=== PATIENT | male | born 1945 | race Caucasian/White ===

== ENCOUNTER 2017-12-20 16:40 | Inpatient (IN) | payer OTHER ==
[~2017-12-20] VITALS: Ht 170.2 cm; Wt 73.9 kg
--- NOTE | 2017-12-20 17:43 | ED GI/GU/ABDOMINAL COMPLAINT ---
History of Present Illness General Chief Complaint: Abdominal Pain/Flank Pain Stated Complaint: ABD PAIN,VOMITING Source: patient, family, old records Exam Limitations: no limitations Vital Signs & Intake/Output Vital Signs & Intake/Output Vital Signs Date Time Temp Pulse Resp B/P B/P Pulse O2 O2 Flow FiO2 Mean Ox Delivery Rate 12/22 1328 98.1 101 20 165/100 95 Room Air 12/22 0848 178/100 12/22 0735 97.5 97 18 162/100 94 Room Air 12/21 2258 97.7 89 20 130/88 95 Room Air ED Intake and Output 12/22 0000 12/21 1200 Intake Total 1920 200 Output Total 300 Balance 1620 200 Intake, IV 1800 200 Intake, Oral 120 Number 0 Bowel Movements Output, Urine 300 Patient 164 lb Weight Weight Reported by Patient Measurement Method Allergies Coded Allergies: No Known Allergies (12/20/17) Reconcile Medications Esomeprazole Magnesium (Nexium) 20 MG CAPSULE.DR 1 CAP PO DAILY GI (Reported) Famotidine (Pepcid AC) (Unknown Strength) TABLET (Unknown Dose) PO DAILY SUPPLEMENT (Reported) Guaifenesin (Mucinex) 1,200 MG TAB.ER.12H 1 TAB PO BID MUCUS (Reported) Ibuprofen 200 MG CAPSULE 2 CAP PO PRN PAIN/INFLAMMATION (Reported) Loratadine (Claritin) 10 MG TABLET 1 TAB PO DAILY ALLERGIES (Reported) Olmesartan Medoxomil (Benicar) 40 MG TABLET 1 TAB PO DAILY BP (Reported) Triage Note: PT TO ED FOR C/C OF INTERMITTENT ABD PAIN X MONTHS. "IT HAPPENS ONCE A MONTH AND LAST FOR THREE DAYS." DENIES WORSENING PAIN THIS EPISODE, "I'M JUST FED UP AND WANT IT CHECKED OUT." +VOMITING X 1 TIME CLEAR LIQUID. CHILLS. DENIES DIARRHEA. Triage Nurses Notes Reviewed? yes Onset: Abrupt Duration: day(s): (1), better, constant Timing: recent history Quality/Severity: aching, burning Severity Numbers: 5 Location: epigastric Radiation: no radiation Activities at Onset: none No Modifying Factors: none Associated Symptoms: denies HPI: 72-year-old male with history of hypertension presents to ER for evaluation of several month history of intermittent epigastric nonradiating abdominal pain. He states his symptoms come on randomly and lasts for 2-3 days prior to resolving on their own. He's been taking Zantac with temporary improvement. He states the most recent episode came on this morning. He states that he spit up some water after the pain came on however he otherwise has not had any other vomiting diarrhea black or bloody stools. No hemoptysis no cough shortness of breath weight loss. No history of abdominal surgeries in the past. The patient drinks beer daily and smokes daily. no hstory of etoh withdrawal. No other modifying factors or associated symptoms otherwise. Symptoms are not worse after eating or drinking. (Vasquez Rodriguez) Past History Travel History Traveled to [place] past 21 day No Medical History Any Pertinent Medical History? 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 No (Vasquez Rodriguez) Review of Systems Review of Systems Constitutional: Reports: no symptoms. Comments Review of systems: See HPI, All other systems negative. Constitutional, no chills no fever, no malaise HEENT: no sore throat no congestion Cardiovascular: No chest pain , no palpitation Skin: no rashes, no change in skin Respiratory: No dyspnea no cough no sputum GI: nausea vomiting, no diarrhea, no bloating/constipation : No dysuria No hematuria, Muscle skeletal: No joint pain, no back pain Neurologic: , no headache Psych: No stress Heme/endocrine: No bruising Immunology: No lymphadenopathy (Vasquez Rodriguez) Physical Exam Physical Exam General Appearance: well developed/nourished, alert, awake Gastrointestinal: soft, tenderness (EPIGASTRIC) Comments: Well-developed well-nourished person in no acute distress HEENT: Normal EENT exam; PERRL, EOMI, HEAD is atraumatic. moist mucous membranes. Neck: Supple, normal range of motion Back: Nontender, no CVA tenderness. Full range of motion Cardiovascular: Regular rate and rhythms no murmur Respiratory: Chest nontender. No respiratory distress. Patient speaking in full complete sentences. Breath sounds clear to auscultation bilaterally: NO W/R/R Abdomen: Soft, negative Butterfield's sign no right upper quadrant tenderness, epigastric tenderness palpation nondistended, no appreciable organomegaly. Normal bowel sounds. No rebound/guarding, No appreciable enlargement of the abdominal aorta, No ascite Extremity: No edema, full range of motion of extremities Neuro: Alert oriented x3, motor sensory normal, There were no obvious focal neurologic abnormalities. Skin: No appreciable rash on exposed skin, skin is warm and dry. No jaundice, no diaphoresis Psych: Mood and affect is normal, memory and judgment is normal. Core Measures ACS in differential dx? Yes Sepsis Present: No Sepsis Focused Exam Completed? No (Natalya PADILLA,Vasquez) Progress Differential Diagnosis: AAA, AMI, appendicitis, biliary colic, bowel obstruction , cholecystitis, diverticulitis, gastritis, hepatitis, hernia, inflamm bowel dis , pancreatitis, peptic ulcer, PUD/GERD, SBO, urinary retention, malignancy Plan of Care: Orders Procedure Date/time Status Clear Liquid Diet 12/22 D Active BLOOD CULTURE 12/22 1433 Active CBC WITHOUT DIFFERENTIAL 12/22 0600 Complete Restraint- Medical 12/22 UNK Complete Restraint- Medical 12/22 UNK Active Current Medications Sig/Óscar Start time Last Medication Dose Stop Time Status Admin Sodium Chloride 1,000 ML Q10H 12/22 1445 AC (Normal Saline 0.9%) Lorazepam 1.5 MG Q6 12/22 1200 AC 12/22 (Ativan) 1249 Losartan Potassium 75 MG DAILY 12/22 1000 AC 12/22 (Cozaar) 0848 Enoxaparin Sodium 40 MG DAILY 12/21 1000 AC 12/22 (Lovenox) 0849 Folic Acid 1 MG DAILY 12/21 1000 AC 12/22 (Folic Acid) 0848 Nicotine 14 MG Q24 12/21 1000 AC 12/22 (Nicotine Cq) 0849 Pantoprazole Sodium 40 MG DAILY 12/21 1000 AC 12/22 (Protonix) 0849 Thiamine HCl 100 MG DAILY 12/21 1000 AC 12/22 (Vitamin B1) 0848 Acetaminophen 325 MG Q6P PRN 12/20 2345 AC (Tylenol) Hydromorphone HCl 1 MG Q6P PRN 12/20 2345 AC 12/21 (Dilaudid) 1352 Lorazepam 0 Q1P PRN 12/20 2345 AC 12/22 (Ativan) 1032 Ondansetron HCl 4 MG Q6P PRN 12/20 2345 AC (Zofran) Oxycodone HCl 5 MG Q6P PRN 12/20 2345 AC 12/21 (Roxicodone) 1254 Laboratory Tests 12/22/17 0616: Anion Gap 14, Estimated GFR > 60, BUN/Creatinine Ratio 21.7, CBC w Diff NO MAN DIFF REQ, RBC 4.26 L, MCV 95.8 H, MCH 32.4 H, MCHC 33.8, RDW 14.7 H, MPV 8.3 , Gran % 87.8 H, Lymphocytes % 4.8 L, Monocytes % 7.3, Eosinophils % 0, Basophils % 0.1, Absolute Granulocytes 12.1 H, Absolute Lymphocytes 0.7 L, Absolute Monocytes 1.0 H, Absolute Eosinophils 0, Absolute Basophils 0 12/21/17 2200: Urine Opiates Screen 1228.00, Methadone Screen < 40, Barbiturate Screen < 60, Ur Phencyclidine Scrn < 6.00, Amphetamines Screen < 100, U Benzodiazepines Scrn < 85, Urine Cocaine Screen < 50, Urine Cannabis Screen < 5.00, Urinalysis LIGHT H , Urine Color YEL, Urine Clarity CLEAR, Urine pH 6.0, Ur Specific [place] 1.025, Urine Protein TRACE H, Urine Ketones 15 H, Urine Nitrite NEG, Urine Bilirubin NEG, Urine Urobilinogen 1.0, Ur Leukocyte Esterase NEG, Ur Microscopic SEDIMENT EXAMINED, Urine RBC 3-5, Urine WBC RARE, Ur Epithelial Cells RARE, Urine Mucus MANY H, Urine Hemoglobin TRACE-INTACT H, Urine Glucose NEG Microbiology 12/22 1613 BLOOD: Blood Culture - RECD 12/22 1458 BLOOD: Blood Culture - RECD Patient medicated with Toradol 30 IV, Pepcid 20 IV GI cocktail CAT scan ordered. Case discussed with Dr. Mistry agrees with plan. 1909 patient's sleeping discussed with his family as well as lab results today pending CAT scan. 194- pt reports pain improving 1999 discussed with the patient and family plan of care and CAT scans need for admission patient seen and evaluated by Dr. Schmitt who agrees with plan patient is in agreement with plan for admission Diagnostic Imaging: Viewed by Me: CT Scan. Discussed w/RAD: CT Scan. Radiology Impression: PATIENT: RAYNA LEON I PRESENT AGE: 72 PATIENT ACCOUNT NO: [id number] : 46 LOCATION: [facility] ORDERING PHYSICIAN: Vasquez PADILLA SERVICE DATE: 12/20/17 EXAM TYPE: CAT - CT ABD & PELVIS W IV CONTRAST EXAMINATION: CT ABDOMEN AND PELVIS WITH CONTRAST CLINICAL INFORMATION: Epigastric abdominal pain with nausea and vomiting. Concern for cholecystitis. COMPARISON: CT abdomen/pelvis 12/07/2013. TECHNIQUE: Multidetector volumetric imaging was performed of the abdomen and pelvis following IV administration of 94 mL of Optiray 320 intravenous contrast. Sagittal and coronal reformatted images were obtained on the technologist's workstation. DLP: 313.13 mGy-cm FINDINGS: LUNG BASES: The visualized lung bases are unremarkable. LIVER, GALLBLADDER, AND BILIARY TREE: The liver is normal in size, shape, and attenuation. No focal hepatic lesion or biliary ductal dilatation is present. The gallbladder is unremarkable with no evidence of radiopaque gallstones, gallbladder wall thickening, or obvious pericholecystic inflammatory changes. PANCREAS: There is prominent peripancreatic edema and inflammatory changes. The pancreatic duct in the pancreatic tail is dilated measuring up to approximately 6 to 7 mm. There is a large cystic lesion within the pancreatic head measuring up to approximately 2.6 x 2.7 x 2.5 cm which appears to connect with the main pancreatic duct. There are prominent calcifications within this cystic collection. There are additional calcifications scattered throughout the parenchyma of the pancreatic head and neck. The pancreatic tail is unremarkable. Prominent peripancreatic edema extends around the portal vasculature. These calcifications are new from the prior examination. SPLEEN: Unremarkable. ADRENAL GLANDS: Unremarkable. KIDNEYS AND URETERS: The kidneys are normal in size, shape, and attenuation. No hydronephrosis or hydroureter. There is a tiny 1 to 2 mm nonobstructive calculus in the lower pole left kidney.. No perinephric stranding. BLADDER: Mild circumferential thickening of the bladder. GASTROINTESTINAL TRACT: There is mild thickening of the first, second, and third portions of duodenum which is likely reactive to pancreatic pathology. The remaining small and large bowel is unremarkable. The appendix is normal. ABDOMINAL WALL: No significant hernia is appreciated. LYMPH NODES: There are a few scattered peripancreatic lymph nodes which are likely reactive. VASCULAR: Mild atherosclerotic changes of the abdominal aorta and its branches. No portal thrombus. No significant vascular occlusion or mass effect on any of the peripancreatic vasculature. PELVIC VISCERA: Coarse calcifications in the prostate. OSSEOUS STRUCTURES: Degenerative changes the partially visualized spine. IMPRESSION: Large cystic lesion within the pancreatic head which favors a prominently dilated pancreatic duct containing coarse internal calcifications. There are additional scattered calcifications throughout the parenchyma of the pancreatic head and neck with prominent surrounding peripancreatic edema and inflammatory changes. No discrete peripancreatic fluid collection. Findings most likely represent acute on chronic pancreatitis. Underlying malignancy within the pancreas is not completely excluded. Consider MRI of the abdomen with and without intravenous contrast for further evaluation. No cholecystitis. This critical result was discussed with Vasquez Hoang at 07:58 PM on and it was ascertained that the content of the report was understood at the time of direct communication. DICTATED BY: Chandana Melo MD DATE/TIME DICTATED:12/20/171947 DRY BOSS:BRENDON DATE/TIME TRANSCRIBED:12/20/171947 CONFIDENTIAL, DO NOT COPY WITHOUT APPROPRIATE AUTHORIZATION. <Electronically signed in Other Vendor System> SIGNED BY: Chandana Melo MD 12/20/172003 Initial ED EKG: normal intervals, normal p-waves, normal QRS complex, normal sinus rhythm Prior EKG: unchanged (Vasquez Rodriguez) Departure Departure Time of Disposition: 2000 Disposition: STILL A PATIENT Condition: Stable Clinical Impression Primary Impression: Pancreatitis Qualifiers: Chronicity: acute Pancreatitis type: alcohol induced Acute pancreatitis complication: unspecified Qualified Code: K85.20 - Alcohol induced acute pancreatitis without necrosis or infection Secondary Impressions: Alcoholic hepatitis Qualifiers: Ascites presence: without ascites Qualified Code: K70.10 - Alcoholic hepatitis without ascites Cystic lesion of abdominal viscera Referrals: Luis RAMIREZ,Nikolas Saenz (PCP/Family) Hero RAMIREZ,Mamadou Saenz Departure Forms: Customer Survey General Discharge Information Admission Note [facility] Documentation of Exam: Documentation of any treatments & extenuating circumstances including Concerns Regarding Discharge (functional status, medication knowledge or non-compliance, living conditions, etc.) that warrant an admission rather than observation:IV PAIN MEDICATION, GI CONSULT, MRI ABDOMEN, IV FLUIDS, TREND LABS PREMATURE DISCHARGE WOULD BE MEDICALLY HARMFUL (Vasquez Rodriguez) PA/PAIRER Co-Sign Statement Statement: ED Attending supervision documentation- [X] I saw and evaluated the patient. I have also reviewed all the pertinent lab results and diagnostic results. I agree with the findings and the plan of care as documented in the PA's/PAIRER's documentation. [X] I have reviewed the ED Record and agree with the PA's/PAIRER's documentation. [] Additions or exceptions (if any) to the PAs/PAIRER's note and plan are summarized below: [] (Dominga Mistry MD) PA/PAIRER Co-Sign Statement Statement: ED Attending supervision documentation- [X] I saw and evaluated the patient. I have also reviewed all the pertinent lab results and diagnostic results. I agree with the findings and the plan of care as documented in the PA's/PAIRER's documentation. 12/20/17, 19:45... Pt with elevated lipase, abd tenderness, likely medical/ etoh.... pt to be admitted to medicine. [] I have reviewed the ED Record and agree with the PA's/PAIRER's documentation. [] Additions or exceptions (if any) to the PAs/PAIRER's note and plan are summarized below: [] (Golden RAMIREZ,Andrew Gama) Admission Note Spoke With: Luis Coello MD Documentation of Exam: Documentation of any treatments & extenuating circumstances including Concerns Regarding Discharge (functional status, medication knowledge or non-compliance, living conditions, etc.) that warrant an admission rather than observation:IV PAIN MEDICATION, GI CONSULT, MRI ABDOMEN, IV FLUIDS, TREND LABS PREMATURE DISCHARGE WOULD BE MEDICALLY HARMFUL (Vasquez Rodriguez) PA/PAIRER Co-Sign Statement Statement: ED Attending supervision documentation- [X] I saw and evaluated the patient. I have also reviewed all the pertinent lab results and diagnostic results. I agree with the findings and the plan of care as documented in the PA's/PAIRER's documentation. [X] I have reviewed the ED Record and agree with the PA's/PAIRER's documentation. [] Additions or exceptions (if any) to the PAs/PAIRER's note and plan are summarized below: [] (Dominga Mistry MD) PA/PAIRER Co-Sign Statement Statement: ED Attending supervision documentation- [X] I saw and evaluated the patient. I have also reviewed all the pertinent lab results and diagnostic results. I agree with the findings and the plan of care as documented in the PA's/PAIRER's documentation. 12/20/17, 19:45... Pt with elevated lipase, abd tenderness, likely medical/ etoh.... pt to be admitted to medicine. [] I have reviewed the ED Record and agree with the PA's/PAIRER's documentation. [] Additions or exceptions (if any) to the PAs/PAIRER's note and plan are summarized below: [] (Golden RAMIREZ,Andrew Gama)
[2017-12-20 18:17] LABS: ABSOLUTE BASOPHIL COUNT 0 /CUMM (0.0-0.2); ABSOLUTE EOSINOPHIL COUNT 0.1 /CUMM (0.0-0.7); ABSOLUTE GRANULOCYTE CT 6.5 /CUMM (1.4-6.5); ABSOLUTE MONOCYTE COUNT 0.4 /CUMM (0.10-0.60); BASOPHIL % 0.3 % (0.0-2.0); GRANULOCYTE % 80.9 % (42.2-75.2); HEMATOCRIT 46.8 % (42-52); MEAN CORPUSCULAR HGB 31.9 PG (27.0-31.0); MEAN CORPUSCULAR HGB CONC 33.4 G/DL (33.0-37.0); MEAN CORPUSCULAR VOLUME 95.4 FL (80.0-94.0); MEAN PLATELET VOLUME 7.4 FL (7.4-10.4); PLATELET COUNT 242 /CUMM (130-400); RBC DISTRIBUTION WIDTH 14.7 % (11.5-14.5)
[2017-12-20] MEDS ORDERED: BENICAR40 M1 PO (19:34)
[2017-12-20] MEDS ORDERED: IBUPROFEN200 M3 PO (19:34)
[2017-12-20] MEDS ORDERED: CLARITIN10 M1 PO (19:35)
[2017-12-20] MEDS ORDERED: NEXIUM20 M1 PO (19:35)
[2017-12-20] MEDS ORDERED: PEPCID AC20 M2 PO (19:35)
[2017-12-20] MEDS ORDERED: MUCINEX1200 M1 PO (19:36)
--- NOTE | 2017-12-20 20:04 | CT SCAN REPORT ---
EXAMINATION: CT ABDOMEN AND PELVIS WITH CONTRAST CLINICAL INFORMATION: Epigastric abdominal pain with nausea and vomiting. Concern for cholecystitis. COMPARISON: CT abdomen/pelvis 12/07/2013. TECHNIQUE: Multidetector volumetric imaging was performed of the abdomen and pelvis following IV administration of 94 mL of Optiray 320 intravenous contrast. Sagittal and coronal reformatted images were obtained on the technologist's workstation. DLP: 313.13 mGy-cm FINDINGS: LUNG BASES: The visualized lung bases are unremarkable. LIVER, GALLBLADDER, AND BILIARY TREE: The liver is normal in size, shape, and attenuation. No focal hepatic lesion or biliary ductal dilatation is present. The gallbladder is unremarkable with no evidence of radiopaque gallstones, gallbladder wall thickening, or obvious pericholecystic inflammatory changes. PANCREAS: There is prominent peripancreatic edema and inflammatory changes. The pancreatic duct in the pancreatic tail is dilated measuring up to approximately 6 to 7 mm. There is a large cystic lesion within the pancreatic head measuring up to approximately 2.6 x 2.7 x 2.5 cm which appears to connect with the main pancreatic duct. There are prominent calcifications within this cystic collection. There are additional calcifications scattered throughout the parenchyma of the pancreatic head and neck. The pancreatic tail is unremarkable. Prominent peripancreatic edema extends around the portal vasculature. These calcifications are new from the prior examination. SPLEEN: Unremarkable. ADRENAL GLANDS: Unremarkable. KIDNEYS AND URETERS: The kidneys are normal in size, shape, and attenuation. No hydronephrosis or hydroureter. There is a tiny 1 to 2 mm nonobstructive calculus in the lower pole left kidney.. No perinephric stranding. BLADDER: Mild circumferential thickening of the bladder. GASTROINTESTINAL TRACT: There is mild thickening of the first, second, and third portions of duodenum which is likely reactive to pancreatic pathology. The remaining small and large bowel is unremarkable. The appendix is normal. ABDOMINAL WALL: No significant hernia is appreciated. LYMPH NODES: There are a few scattered peripancreatic lymph nodes which are likely reactive. VASCULAR: Mild atherosclerotic changes of the abdominal aorta and its branches. No portal thrombus. No significant vascular occlusion or mass effect on any of the peripancreatic vasculature. PELVIC VISCERA: Coarse calcifications in the prostate. OSSEOUS STRUCTURES: Degenerative changes the partially visualized spine. IMPRESSION: Large cystic lesion within the pancreatic head which favors a prominently dilated pancreatic duct containing coarse internal calcifications. There are additional scattered calcifications throughout the parenchyma of the pancreatic head and neck with prominent surrounding peripancreatic edema and inflammatory changes. No discrete peripancreatic fluid collection. Findings most likely represent acute on chronic pancreatitis. Underlying malignancy within the pancreas is not completely excluded. Consider MRI of the abdomen with and without intravenous contrast for further evaluation. No cholecystitis. This critical result was discussed with Vasquez oHang at 07:58 PM on and it was ascertained that the content of the report was understood at the time of direct communication.
--- NOTE | 2017-12-20 20:48 | History & Physical ---
Zachary RAMIREZ,[facility] 12/20/172046: General Information and HPI MD Statement: I have seen and personally examined RAYNA LEON I and documented this H&P. The patient is a 72 year old M who presented with a patient stated chief complaint of [abd pain]. Source of Information: patient History of Present Illness: 72-year-old male with a past medical history of hypertension, arthritis, COPD not on home oxygen, Pieroni's disease, cervical spine fusion presenting for abdominal pain. The patient states that he has been having abdominal pain for 2 years. He states that the abdominal pain comes intermittently and usually last for 3 days. He states that his last pain episode was on Thursday which then lasted until Thursday. He states that the pain that started again today. He describes the pain as a crampy pain but like in the upper abdominal region. States that it does not radiate to the back. States that he did have some nausea and vomiting today after the prep stated before meals that he took. He states that he had a fatty meal last night which was a burger 80/20. He states that he does have chills with the abdominal pain episodes. He also complains of joint pain which is from his arthritis, shortness of breath and cough which is chronic,. Of note the patient states that he takes 400 mg of ibuprofen daily for the past 4-5 years. This is for his back pain. States that he does not have any black or tarry stool. He denies any urinary complaints, chest pain, changes in weight, or diarrhea. The patient states that he does drink 3-4 beers per day and has been smoking a pack per day for the past 50 years. He has a history of cocaine snorting and marijuana use. Allergies/Medications Allergies: Coded Allergies: No Known Allergies (12/20/17) Home Med list Esomeprazole Magnesium (Nexium) 20 MG CAPSULE.DR 1 CAP PO DAILY GI (Reported) Famotidine (Pepcid AC) (Unknown Strength) TABLET (Unknown Dose) PO DAILY SUPPLEMENT (Reported) Guaifenesin (Mucinex) 1,200 MG TAB.ER.12H 1 TAB PO BID MUCUS (Reported) Ibuprofen 200 MG CAPSULE 2 CAP PO PRN PAIN/INFLAMMATION (Reported) Loratadine (Claritin) 10 MG TABLET 1 TAB PO DAILY ALLERGIES (Reported) Olmesartan Medoxomil (Benicar) 40 MG TABLET 1 TAB PO DAILY BP (Reported) Past History Travel History Traveled to [place] past 21 day No Medical History Neurological: NONE EENT: NONE Cardiovascular: hypertension Respiratory: COPD Gastrointestinal: GERD Hepatic: NONE Renal: NONE Musculoskeletal: NONE Psychiatric: NONE Endocrine: NONE Blood Disorders: NONE Cancer(s): NONE 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 Respiratory: Reports: see HPI, cough. GI: Reports: abdominal pain. Musculoskeletal: Reports: see HPI, joint pain. Exam & Diagnostic Data Last 24 Hrs of Vital Signs/I&O Vital Signs Date Time Temp Pulse Resp B/P B/P Pulse O2 O2 Flow FiO2 Mean Ox Delivery Rate 12/21 0057 97.8 86 20 186/92 97 12/21 0056 97.8 86 20 186/92 12/20 2204 97.2 77 18 197/93 99 Room Air 12/20 1811 Room Air 12/20 1645 95.0 56 15 158/83 99 Room Air Room Air Intake & Output 12/21 0800 12/21 0000 12/20 1600 Intake Total 1000 Output Total Balance 1000 Intake, IV 1000 Patient 165 lb Weight Weight Reported by Patient Measurement Method Physical Exam General Appearance Alert, Oriented X3, Cooperative, No Acute Distress Cardiovascular Regular Rate, Normal S1, Normal S2 Lungs Clear to Auscultation, Normal Air Movement Abdomen guarding, RUQ and epigastric tenderness Extremities 2+ radial pulses, no carmona turners or cullens sign Last 24 Hrs of Labs/Josh: Laboratory Tests 12/20/17 1805: Anion Gap 12, Estimated GFR > 60, BUN/Creatinine Ratio 15.6, Glucose 127 H, Calcium 9.5, Magnesium 1.7, Total Bilirubin 1.6 H, Direct Bilirubin 1.2 H, AST 518 H, ALT 203 H, Alkaline Phosphatase 137 H, Troponin I < 0.01, Total Protein 7.6, Albumin 4.1, Globulin 3.5, Albumin/Globulin Ratio 1.2, Amylase 2428 H, Lipase 15080 H, CBC w Diff NO MAN DIFF REQ, RBC 4.90, MCV 95.4 H, MCH 31.9 H, MCHC 33.4, RDW 14.7 H, MPV 7.4, Gran % 80.9 H, Lymphocytes % 12.9 L, Monocytes % 4.9, Eosinophils % 1.0, Basophils % 0.3, Absolute Granulocytes 6.5, Absolute Lymphocytes 1.0 L, Absolute Monocytes 0.4, Absolute Eosinophils 0.1, Absolute Basophils 0, Serum Alcohol < 10.0 12/20/17 1645: Urine Color Cancelled, Urine Clarity Cancelled, Urine pH Cancelled, Ur Specific [place] Cancelled, Urine Protein Cancelled, Urine Ketones Cancelled, Urine Nitrite Cancelled, Urine Bilirubin Cancelled, Urine Urobilinogen Cancelled, Ur Leukocyte Esterase Cancelled, Ur Microscopic Cancelled, Urine Hemoglobin Cancelled, Urine Glucose Cancelled Assessment/Plan Assessment: A: 72-year-old male with a past medical history of hypertension, arthritis, COPD not on home oxygen, Pieroni's disease, cervical spine fusion presenting for abdominal pain found to have elevated lipase most likely due to acute on chronic pancreatitis. P: #acute on chronic pancreatitis Pt states abd pain x2 years CT abd : Large cystic lesion within the pancreatic head which favors a prominently dilated pancreatic duct containing coarse internal calcifications. There are additional scattered calcifications throughout the parenchyma of the pancreatic head and neck with prominent surrounding peripancreatic edema and inflammatory changes. No discrete peripancreatic fluid collection. Findings most likely represent acute on chronic pancreatitis. Underlying malignancy within the pancreas is not completely excluded. Consider MRI of the abdomen No cholecystitis. Lipase: [address] LFT: Total bilirubin 1.6, AST 518, ALT 203, ALP 137 -trend lft and lipase -NPO, advanced diet as tolerated -lactated ringers -ruq us for galls tones -Check lipid panel, HbA1c, TSH, free T4 - Initiate IV PPI -pain control -zofran prn for [place]ase[place] -no nsaids -guaiac all stools - MRI abdomen with and w/o ASHLEY (pancreatic protocol) to assess pancreatic mass -f/u GI consult -Check HIV, hepatitis panel and GGT. - Check tylenol level -Check urinalysis, CXR for pleural effusions (to calculate BISAP score), urine drug screen #Hyponatremia Sodium 136 -Continue to monitor #htn -cont losartan -control pain and monitor bp #hx of heavy etoh use 3-4 beers/night -cont thiamine,folate, -ativan taper and prn, CIWA -s/w consult #gerd -cont protonix #hx of smoking -cont nicotine patch #dvt prophylaxis -lovenox #FULL CODE As Ranked By This Provider Problem List: 1. Acute on chronic pancreatitis Core Measures/Misc (07/26) Acute Coronary Syndrome ACS Diagnosis: No Congestive Heart Failure Congestive Heart Failure Diagnosis No Cerebrovascular Accident CVA/TIA Diagnosis: No VTE (View Protocol) VTE Risk Factors Acute Medical Illness No Mechanical VTE Prophylaxis d/t Other No VTE Pharm Prophylaxis d/t NA PharmProphylax ordered Sepsis (View protocol) Sepsis Present: No Mode RAMIREZ, [facility] 12/20/172057: Attending MD Review Statement Attending Statement Attending MD Statement: examined this patient, discuss w/resident/PA/EMBEDDED ENGINEER, agreed w/resident/PA/EMBEDDED ENGINEER Attending Assessment/Plan: 72 yo M smoker with h/o HTN on Benicar, COPD, hay fever/ allergies, acid reflux, Peyronie's disease, cervical fusion resulting in significant debilitation, is here for evaluation of epigastric pain associated with nausea/ vomiting. Patient has had intermittent episodes of epigastric band like abdominal pain (feels like muscle spasm), for about 2 years, 2-3 times every month and lasts for 3 days. He feels weak, nauseous and has hot/cold flashes during these episodes. He takes nexium, pepcid and ibuprofen to alleviate the pain. He denies weight loss or night sweats. His appetite is otherwise good. He has not been evaluated by GI for this pain. This morning, he drank his coffee and this brought the pain. He felt weak, lightheaded, cold and vomited once. His then brought him to the ER. Patient has been a chronic alcohol user since a young age, drinks beer. He used to drink two 30 packs per week, but now drinks about 3-4 drinks every day. Last drink was at 1 pm a day prior to admission. He has never been through a detox program or had withdrawal seizure. He has previously smoked cocaine and marijuana, but no IV drugs and none recently. He reports baseline chronic dyspnea on exertion and cough productive of white phlegm. Vitals stable. Exam: AAO, dysarthria, Neck supple, dry mucous membranes, Chest b/l clear, Heart S1S2 regular, Abd soft, voluntary guarding, BS+, LE no edema. Labs: no leukocytosis, H/H 15.6/46.8, Na 136, BUN 14, creat 0.9, glucose 127, T. Bili 1.6, AST 518, ALT 203, Alk phos 137, (LFTs done in 2017 were normal). Trop neg. Lipase 27150, amylase 2428. Alcohol <10. CT Abd/pelvis: large cystic lesion within pancreatic head, prominent dilated pancreatic duct with coarse internal calcifications. Pancreatic parenchyma calcifications with peripancreatic edema and inflammatory changes. No fluid collection. Findings represent acute on chronic pancreatitis. EKG: sinus rhythm. TURBT (2014): bladder mass not malignant Colonoscopy (2014): polyps hyperplastic/tubular adenoma. Assessment and plan: 1. Acute alcohol induced pancreatitis, need to evaluate for gallstones and hypertriglyceridemia. 2. Acute on chronic pancreatitis 3. Pancreatic head cystic leasion with dilated duct concerning for malignancy 4. Transaminitis 5. Essential hypertension 6. Chronic alcohol abuse 7. Smoker 8. Excessive NSAID (ibuprofen) use - Admit to General medicine - Keep NPO - Lactated ringers 150-200/ hr as BP tolerates - Pain management with IV dilaudid and oxycodone - RUQ ultrasound to assess for gallstones - Check lipid panel, HbA1c, TSH, free T4 - Initiate IV PPI - No NSAIDs - Guaiac all stools - MRI abdomen with and w/o ASHLEY (pancreatic protocol) to assess pancreatic mass - GI consult (patient has seen Dr. Chacko for colonoscopy in 2013) - Check HIV, hepatitis panel and GGT. - Check tylenol level - Check urinalysis, CXR for pleural effusions (to calculate BISAP score), urine drug screen - CIWA protocol - IV ativan per CIWA - PO ativan 2 mg Q6 - Thiamine, folic acid, MVI - Social work consult - Resume benicar - Smoking cessation counseling, nicotine patch. DVT ppx Lovenox. Full code. Leighton RAMIREZ,[facility] 12/21/17 0534: Resident Review Statement Resident Statement: examined this patient, discussed with general internal medicine physician, agreed with general internal medicine physician Other Findings: Mr. Leon is a 72 year old male with past medical history significant for hypertension, COPD not on home oxygen, questionable obstructive sleep apnea, Pieroni's disease, cervical spine effusion C3, 4 and 5, alcoholism presented to ED with chief complaint of recurrent epigastric abdominal pain. Problem list Acute on top of chronic pancreatitis Possible pancreatic malignancy Alcohol abuse Transaminitis Smoking Plan Admit to general medical floor Nothing by mouth Aggressive fluid hydration by lactated Ringer Pain management Obtain MRI abdomen pelvis with ashley as recommended by cardiology Follow up liver function test Obtain hepatitis and HIV CIWA score Ativan by mouth 2 mg every 6 Ativan according to CIWA score Guaiac stool Nicotine patch Code full
--- NOTE | 2017-12-20 20:58 | Admission Certification ---
Admission Certification Certification Statement - As attending physician, I certify that at the time of - admission, based on clinical presentation, severity of - symptoms, need for further diagnostic testing and - therapeutic interventions, and risk of adverse outcomes - without in-hospital treatment, in my clinical assessment, - this patient requires an acute hospital stay for a minimum - of two nights or longer. I have also considered psychsocial - factors such as support system, advanced age, financial - issues, cognitive issues, and failed out-patient treatments, - past re-admission history, safety of patient, and lack of - compliance as applicable. Specific rationale supporting this admission is: Acute alcoholic pancreatitis, pancreatic mass that needs further evaluation.
[2017-12-21 00:56] VITALS: BP 186/92
[2017-12-21 03:36] VITALS: BP 160/84
[2017-12-21 07:06] VITALS: BP 160/102
--- NOTE | 2017-12-21 07:54 | PN- Housestaff ---
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 EENTM: Denies: double vision, visual changes, eye pain. Cardiovascular: Denies: chest pain, edema, orthopena. Respiratory: Denies: cough, hemoptysis. Gastrointestinal: Denies: abdominal pain, bloating, constipation. Genitourinary: Denies: discharge. Objective Last 24 Hrs of Vital Signs/I&O Vital Signs Date Time Temp Pulse Resp B/P B/P Pulse O2 O2 Flow FiO2 Mean Ox Delivery Rate 12/21 1241 96.5 96 20 158/92 98 Room Air Room Air 12/21 0913 88 160/102 12/21 0706 97.6 88 18 160/102 97 12/21 0400 95 Room Air 12/21 0336 97.8 83 18 160/84 96 12/21 0057 97.8 86 20 186/92 97 12/21 0056 97.8 86 20 186/92 12/20 2204 97.2 77 18 197/93 99 Room Air 12/20 1811 Room Air 12/20 1645 95.0 56 15 158/83 99 Room Air Room Air Intake & Output 12/21 1600 12/21 0800 12/21 0000 Intake Total 316 724 2120 Output Total Balance 003 239 5635 Intake, IV 144 687 6326 Intake, Oral 120 Patient 164 lb 165 lb Weight Weight Reported by Patient Reported by Patient Measurement Method Physical Exam General Appearance: Alert, Oriented X3 Skin: No Rashes, No Breakdown Cardiovascular: Regular Rate, Normal S1, Normal S2 Lungs: Clear to Auscultation, Normal Air Movement Abdomen: Normal Bowel Sounds, Soft, No Tenderness Neurological: Normal Gait, Normal Speech Current Medications: Current Medications Sig/Óscar Start time Last Medication Dose Route Stop Time Status Admin Acetaminophen 325 MG Q6P PRN 12/20 2345 AC PO Enoxaparin Sodium 40 MG DAILY 12/21 1000 AC 12/21 SC 0913 Famotidine 20 MG ONCE ONE 12/20 1800 DC 12/20 IV 12/20 1801 1807 Famotidine 0 .STK-MED ONE 12/20 1756 DC IV Folic Acid 1 MG DAILY 12/21 1000 AC 12/21 PO 0913 Hydromorphone HCl 0 .STK-MED ONE 12/21 0009 DC .ROUTE Hydromorphone HCl 1 MG Q6P PRN 12/20 2345 AC 12/21 IV 1352 Hydromorphone HCl 0 .STK-MED ONE 12/20 2005 DC .ROUTE Hydromorphone HCl 1 MG ONCE ONE 12/20 1999 DC 12/20 IV 12/20 Ketorolac 30 MG ONCE ONE 12/20 1800 DC 12/20 Tromethamine IV 12/20 1801 1807 Ketorolac 0 .STK-MED ONE 12/20 1756 DC Tromethamine .ROUTE Lactated Ringer's 1,000 ML ONCE ONE 12/21 0530 CAN IV 12/21 1029 Lactated Ringer's 1,000 ML .Q5H ONE 12/21 0530 DC 12/21 IV 12/21 1029 0549 Lorazepam 0 .STK-MED ONE 12/21 0008 DC PO Lorazepam 2 MG Q6 12/20 2359 AC 12/21 PO 1253 Lorazepam 0 Q1P PRN 12/20 2345 AC IV Losartan Potassium 50 MG DAILY 12/21 1000 AC 12/21 PO 0913 Nicotine 14 MG Q24 12/21 1000 AC 12/21 TOP 0913 Ondansetron HCl 4 MG Q6P PRN 12/20 2345 AC IV Oxycodone HCl 5 MG Q6P PRN 12/20 2345 AC 12/21 PO 1254 Pantoprazole Sodium 40 MG DAILY 12/21 1000 AC 12/21 IV 0913 Sodium Chloride 1,000 ML BOLUS ONE 12/20 1945 DC 12/20 IV 12/20 2043 1948 Sodium Chloride 1,000 ML ONCE ONE 12/20 1945 DC 12/20 IV 12/21 0224 2205 Thiamine HCl 100 MG DAILY 12/21 1000 AC 12/21 PO 0913 Last 24 Hrs of Lab/Josh Results Last 24 Hrs of Labs/Mics: Laboratory Tests 12/21/17 0715: Anion Gap 10, Estimated GFR > 60, BUN/Creatinine Ratio 18.6, Total Bilirubin 0.4 , Direct Bilirubin 0.3, GGT 407 H, AST 118 H, ALT 119 H, Alkaline Phosphatase 99, Total Protein 6.2 L, Albumin 3.2 L, Triglycerides 119, Cholesterol 141, LDL Cholesterol, Calc 82, HDL Cholesterol 36 L, Cholesterol/HDL Ratio 4, Free T4 0.93, Total T3 1.03, TSH &T3 &Free T4 Intrp 5.570 H, CBC w Diff NO MAN DIFF REQ, RBC 4.63 L, MCV 95.5 H, MCH 32.2 H, MCHC 33.7, RDW 15.0 H, MPV 7.9, Gran % 85.9 H, Lymphocytes % 7.0 L, Monocytes % 6.0, Eosinophils % 0.3, Basophils % 0.8, Absolute Granulocytes 8.0 H, Absolute Lymphocytes 0.6 L, Absolute Monocytes 0.6, Absolute Eosinophils 0, Absolute Basophils 0.1, Hepatitis A IgM Ab NONREACTIVE, Hep Bs Antigen NONREACTIVE, Hep B Core IgM Ab Conf NONREACTIVE, Hepatitis C Antibody NONREACTIVE, HIV 1&2 Ab Western Blot NONREACTIVE, Acetaminophen < 10.0 L 12/20/17 1805: Anion Gap 12, Estimated GFR > 60, BUN/Creatinine Ratio 15.6, Glucose 127 H, Calcium 9.5, Magnesium 1.7, Total Bilirubin 1.6 H, Direct Bilirubin 1.2 H, AST 518 H, ALT 203 H, Alkaline Phosphatase 137 H, Troponin I < 0.01, Total Protein 7.6, Albumin 4.1, Globulin 3.5, Albumin/Globulin Ratio 1.2, Amylase 2428 H, Lipase 90959 H, CBC w Diff NO MAN DIFF REQ, RBC 4.90, MCV 95.4 H, MCH 31.9 H, MCHC 33.4, RDW 14.7 H, MPV 7.4, Gran % 80.9 H, Lymphocytes % 12.9 L, Monocytes % 4.9, Eosinophils % 1.0, Basophils % 0.3, Absolute Granulocytes 6.5, Absolute Lymphocytes 1.0 L, Absolute Monocytes 0.4, Absolute Eosinophils 0.1, Absolute Basophils 0, Serum Alcohol < 10.0 12/20/17 1645: Urine Color Cancelled, Urine Clarity Cancelled, Urine pH Cancelled, Ur Specific [place] Cancelled, Urine Protein Cancelled, Urine Ketones Cancelled, Urine Nitrite Cancelled, Urine Bilirubin Cancelled, Urine Urobilinogen Cancelled, Ur Leukocyte Esterase Cancelled, Ur Microscopic Cancelled, Urine Hemoglobin Cancelled, Urine Glucose Cancelled Assessment/Plan Assessment: Patient is a 72-year-old gentleman with past medical history significant for hypertension, COPD, hay fever/ allergies, acid reflux, Peyronie's disease, cervical fusion resulting in significant debilitation presented to the ED for the evaluation of severe epigastric pain with nausea and vomiting. CT abdomen and pelvis revealed Large cystic lesion within the pancreatic head which favors a prominently dilated pancreatic duct containing coarse internal calcifications. There are additional scattered calcifications throughout the parenchyma of the pancreatic head and neck with prominent surrounding peripancreatic edema and inflammatory changeS. Later on MRI of the abdomen showed arge complex cystic mass with thickened and enhancing carter and internal enhancing septation is seen in direct communication with the main pancreatic duct, most consistent with a large intraductal papillary mucinous neoplasm With Abnormal enlargement and edema of the pancreatic head and prominent surrounding peripancreatic stranding and intra-abdominal fluid, consistent with acute pancreatitis. Problem list Acute pancreatitis CT scan consistent with large intraductal papillary mucinous neoplasm History of alcohol abuse Plan Acute pancreatitis * Continue to monitor patient on [facility] floor * Keep the patient nothing by mouth for now continue with Ringer lactate at the rate of 150 mL per hour. * Continue oxycodone as needed and Dilaudid as needed for pain control. MRI of the abdomen consistent with large intraductal papillary mucinous neoplasm : * Patient and the family has been informed about the CAT scan results * Hepatitis panel , negative with negative HIV results, urine toxicology pending * GI consult has been obtained will follow the recommendations History of alcohol abuse * Continue Ativan as per CIWA protocol. History of hypertension * Blood pressure on the higher side we'll increase the dose of losartan to 75 mg daily. DVT prophylaxis: Lovenox. Problem List: 1. Pancreatitis 2. Cystic lesion of abdominal viscera Pain Ratin Pain Location: Abdominal discomfort Pain Goal: Remain pain free Pain Plan: WHEN NECESSARY tYLENOL Tomorrow's Labs & Rationales: BEP tomorrow
[2017-12-21 08:17] LABS: ABSOLUTE BASOPHIL COUNT 0.1 /CUMM (0.0-0.2); ABSOLUTE EOSINOPHIL COUNT 0 /CUMM (0.0-0.7); ABSOLUTE LYMPH COUNT 0.6 /CUMM (1.2-3.4); ABSOLUTE MONOCYTE COUNT 0.6 /CUMM (0.10-0.60); BASOPHIL % 0.8 % (0.0-2.0); EOSINOPHIL % 0.3 % (0-5); HEMATOCRIT 44.2 % (42-52); MEAN CORPUSCULAR HGB 32.2 PG (27.0-31.0); MEAN CORPUSCULAR HGB CONC 33.7 G/DL (33.0-37.0); MEAN CORPUSCULAR VOLUME 95.5 FL (80.0-94.0); MEAN PLATELET VOLUME 7.9 FL (7.4-10.4); RED BLOOD CELL CT 4.63 /CUMM (4.70-6.10); WHITE BLOOD CELL COUNT 9.3 /CUMM (4.8-10.8)
[2017-12-21 09:02] LABS: GRANULOCYTE % 85.9 % (42.2-75.2); PLATELET COUNT 167 /CUMM (130-400)
--- NOTE | 2017-12-21 11:08 | ULTRASOUND REPORT ---
EXAMINATION: US ABDOMEN LIMITED CLINICAL INFORMATION: 72-year-old male with epigastric, abdominal pain, nausea and vomiting found to have abnormal CT scan of the abdomen showing dilated pancreatic duct with coarse internal calcifications and peripancreatic fluid collections, seen on CT of the abdomen and pelvis done yesterday (12/20/2017). Right upper quadrant abdominal ultrasound is requested for evaluation of the gallbladder for possible gallstones. COMPARISON: CT of the abdomen and pelvis done on 12/20/2017. TECHNIQUE: Real-time imaging of the right upper quadrant abdominal viscera. FINDINGS: PANCREAS: Heterogeneous in morphology. The pancreatic duct is dilated, measures 0.6 cm at the level of the mid part of the body. In the region of the head of the pancreas, the duct appears to be significantly enlarged, measures 2.7 cm containing large calcification. Differential would include calcified mass. The peripancreatic fluid collection is not well-visualized on the sonographic images. LIVER: Normal. The liver demonstrates normal size, contour and echogenicity. No focal lesion or intrahepatic biliary duct dilatation. GALLBLADDER: Normal. The gallbladder is physiologically distended without evidence of stones, sludge, or polyps. The gallbladder wall measures 0.3 cm, upper limit of normal. There is pericholecystic fluid present, likely representing small amount of ascites. COMMON BILE DUCT: Normal in caliber measuring 0.5 cm in diameter. RIGHT KIDNEY: Normal. No hydronephrosis. No renal calculi or focal parenchymal lesions. The kidney measures 10.3 cm in maximum dimension. FREE FLUID: None. IMPRESSION: 1. No sonographic evidence of gallstones. 2. Abnormal appearing pancreas with dilated duct and calcifications. 3. Small amount of fluid is identified around the gallbladder, likely representing small amount of ascites.
[2017-12-21 12:00] VITALS: BP 158/92
--- NOTE | 2017-12-21 12:30 | PN- Att Addend ---
Attending Addendum Attending Brief Note Patient seen and examined, just came back for abdominal MRI. Claims that he's feeling lousy and still having abdominal pain Vital Signs Date Time Temp Pulse Resp B/P B/P Pulse O2 O2 Flow FiO2 Mean Ox Delivery Rate 12/21 0913 88 160/102 12/21 0706 97.6 88 18 160/102 97 12/21 0400 95 Room Air 12/21 0336 97.8 83 18 160/84 96 12/21 0057 97.8 86 20 186/92 97 12/21 0056 97.8 86 20 186/92 12/20 2204 97.2 77 18 197/93 99 Room Air 12/20 1811 Room Air 12/20 1645 95.0 56 15 158/83 99 Room Air Room Air on exam; awake, looks fatigued cv; s1,s2, rrr resp; clear abd; soft, tender generalized, bs+ ext; no edema. Laboratory Tests 12/21 714 Chemistry Sodium (137 - 145 mmol/L) 135 L Potassium (3.5 - 5.1 mmol/L) 4.0 Chloride (98 - 107 mmol/L) 102 Carbon Dioxide (22 - 30 mmol/L) 23 Anion Gap (5 - 16) 10 BUN (9 - 20 mg/dL) 13 Creatinine (0.7 - 1.2 mg/dL) 0.7 Estimated GFR (>60 ml/min) > 60 BUN/Creatinine Ratio (7 - 25 %) 18.6 Total Bilirubin (0.2 - 1.3 mg/dL) 0.4 Direct Bilirubin (< 0.4 mg/dL) 0.3 GGT (15 - 73 U/L) 407 H AST (17 - 59 U/L) 118 H ALT (21 - 72 U/L) 119 H Alkaline Phosphatase (< 127 U/L) 99 Total Protein (6.3 - 8.2 g/dL) 6.2 L Albumin (3.5 - 5.0 g/dL) 3.2 L Triglycerides (<150 mg/dL) 119 Cholesterol (< 200 MG/DL) 141 LDL Cholesterol, Calc (65 - 129 mg/dL) 82 HDL Cholesterol (40 - 60 mg/dL) 36 L Cholesterol/HDL Ratio (0.00 - 4.88 %) 4 Free T4 (0.78 - 2.44 ng/dL) 0.93 Total T3 (0.97 - 1.69 ng/mL) 1.03 TSH &T3 &Free T4 Intrp (0.27 - 4.20 uIU/mL) 5.570 H Hematology CBC w Diff NO MAN DIFF REQ WBC (4.8 - 10.8 /CUMM) 9.3 RBC (4.70 - 6.10 /CUMM) 4.63 L Hgb (14.0 - 18.0 G/DL) 14.9 Hct (42 - 52 %) 44.2 MCV (80.0 - 94.0 FL) 95.5 H MCH (27.0 - 31.0 PG) 32.2 H MCHC (33.0 - 37.0 G/DL) 33.7 RDW (11.5 - 14.5 %) 15.0 H Plt Count (130 - 400 /CUMM) 167 MPV (7.4 - 10.4 FL) 7.9 Gran % (42.2 - 75.2 %) 85.9 H Lymphocytes % (20.5 - 51.1 %) 7.0 L Monocytes % (1.7 - 9.3 %) 6.0 Eosinophils % (0 - 5 %) 0.3 Basophils % (0.0 - 2.0 %) 0.8 Absolute Granulocytes (1.4 - 6.5 /CUMM) 8.0 H Absolute Lymphocytes (1.2 - 3.4 /CUMM) 0.6 L Absolute Monocytes (0.10 - 0.60 /CUMM) 0.6 Absolute Eosinophils (0.0 - 0.7 /CUMM) 0 Absolute Basophils (0.0 - 0.2 /CUMM) 0.1 Serology Hepatitis A IgM Ab (NONREACTIVE) NONREACTIVE Hep Bs Antigen (NONREACTIVE) NONREACTIVE Hep B Core IgM Ab Conf (NONREACTIVE) NONREACTIVE Hepatitis C Antibody (NONREACTIVE) NONREACTIVE HIV 1&2 Ab Western Blot (NONREACTIVE) NONREACTIVE Toxicology Acetaminophen (10.0 - 30.0 ug/mL) < 10.0 L 12/20 12/20 1805 1645 Chemistry Sodium (137 - 145 mmol/L) 136 L Potassium (3.5 - 5.1 mmol/L) 4.3 Chloride (98 - 107 mmol/L) 96 L Carbon Dioxide (22 - 30 mmol/L) 27 Anion Gap (5 - 16) 12 BUN (9 - 20 mg/dL) 14 Creatinine (0.7 - 1.2 mg/dL) 0.9 Estimated GFR (>60 ml/min) > 60 BUN/Creatinine Ratio (7 - 25 %) 15.6 Glucose (65 - 99 mg/dL) 127 H Calcium (8.4 - 10.2 mg/dL) 9.5 Magnesium (1.6 - 2.3 mg/dL) 1.7 Total Bilirubin (0.2 - 1.3 mg/dL) 1.6 H Direct Bilirubin (< 0.4 mg/dL) 1.2 H AST (17 - 59 U/L) 518 H ALT (21 - 72 U/L) 203 H Alkaline Phosphatase (< 127 U/L) 137 H Troponin I (<0.11 ng/ml) < 0.01 Total Protein (6.3 - 8.2 g/dL) 7.6 Albumin (3.5 - 5.0 g/dL) 4.1 Globulin (1.9 - 4.2 gm/dL) 3.5 Albumin/Globulin Ratio (1.1 - 2.2 %) 1.2 Amylase (30 - 110 U/L) 2428 H Lipase (23 - 300 U/L) 97591 H Hematology CBC w Diff NO MAN DIFF REQ WBC (4.8 - 10.8 /CUMM) 8.0 RBC (4.70 - 6.10 /CUMM) 4.90 Hgb (14.0 - 18.0 G/DL) 15.6 Hct (42 - 52 %) 46.8 MCV (80.0 - 94.0 FL) 95.4 H MCH (27.0 - 31.0 PG) 31.9 H MCHC (33.0 - 37.0 G/DL) 33.4 RDW (11.5 - 14.5 %) 14.7 H Plt Count (130 - 400 /CUMM) 242 MPV (7.4 - 10.4 FL) 7.4 Gran % (42.2 - 75.2 %) 80.9 H Lymphocytes % (20.5 - 51.1 %) 12.9 L Monocytes % (1.7 - 9.3 %) 4.9 Eosinophils % (0 - 5 %) 1.0 Basophils % (0.0 - 2.0 %) 0.3 Absolute Granulocytes (1.4 - 6.5 /CUMM) 6.5 Absolute Lymphocytes (1.2 - 3.4 /CUMM) 1.0 L Absolute Monocytes (0.10 - 0.60 /CUMM) 0.4 Absolute Eosinophils (0.0 - 0.7 /CUMM) 0.1 Absolute Basophils (0.0 - 0.2 /CUMM) 0 Toxicology Serum Alcohol (<10 MG/DL) < 10.0 Urines Urine Color Cancelled Urine Clarity Cancelled Urine pH Cancelled Ur Specific [employer] Cancelled Urine Protein Cancelled Urine Ketones Cancelled Urine Nitrite Cancelled Urine Bilirubin Cancelled Urine Urobilinogen Cancelled Ur Leukocyte Esterase Cancelled Ur Microscopic Cancelled Urine Hemoglobin Cancelled Urine Glucose Cancelled A/P; 72 y/o M with pmh sig for hypertension, arthritis, 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 Abdominal MRI is consistent with pancreatic mass. Patient currently nothing by mouth. We'll keep him on IV fluids. Symptomatic treatment with analgesics and antiemetics. Please consult GI. Blood pressure not under control. Please increase the dose of losartan 75 mg daily and use hydralazine when necessary. If need be we can uptitrate losartan further. Continue Ativan scheduled and per CIWA. Continue thiamine. DVT prophylaxis: Lovenox. Discussed the patient's and son.
[2017-12-21 12:41] VITALS: BP 158/92
--- NOTE | 2017-12-21 12:58 | MRI REPORT ---
EXAMINATION: MR ABDOMEN WITHOUT AND WITH CONTRAST CLINICAL INFORMATION: Please evaluate pancreatic head mass or possible cancer. COMPARISON: Ultrasound of the right upper quadrant dated 12/21/2017. CT scan of the abdomen and pelvis dated 12/20/2017. TECHNIQUE: An MRI scan of the abdomen was performed using multiple imaging sequences and imaging planes. As per the MRCP protocol, heavily T2-weighted 3-D high-resolution MRCP sequences were obtained in the coronal plane along with thin and thick slab coronal images and coronal MIP reconstructions on the technologist workstation under concurrent physician supervision. Gadavist 7 mL intravenous was given and postcontrast enhanced dynamic evaluation was performed. FINDINGS: LUNG BASES: Trace bilateral pleural effusions with associated mild bibasilar subsegmental atelectasis are noted. LIVER, GALLBLADDER, BILIARY TREE: Liver normal size and signal. No focal cystic or solid mass or intrahepatic or extrahepatic ductal dilatation. Common bile duct measures 0.3 cm in diameter. Hepatic and portal veins patent. The gallbladder is partially distended and within normal limits. PANCREAS: Corresponding to the previous CT scan findings, there is a 3.4 x 3.4 x 3.9 cm macrolobulated heterogeneous predominantly T2 bright mass in the pancreatic head, which demonstrates thick peripheral rim enhancement and internal enhancing septation postcontrast. There is postobstructive dilatation of the main pancreatic duct in the pancreatic body up to approximately 0.7 cm with tapering to normal caliber duct in the pancreatic tail (0.2 cm). There is communication of the mass to the main pancreatic duct, and findings may represent a large intraductal papillary mucinous neoplasm. There is indistinctness and edema of the pancreatic head. Abnormal edema seen surrounding the entire pancreas and extending into the lateral paracolic gutters bilaterally and extending around the liver and spleen and the bilateral perinephric space. SPLEEN: Normal size and appearance. Splenic vein patent. ADRENAL GLANDS AND KIDNEYS: Adrenal glands normal. Kidneys bilaterally symmetric in size and function. No focal mass, hydronephrosis, or perinephric stranding. BOWEL LOOPS: Grossly within normal limits. LYMPHOVASCULAR STRUCTURES: Abdominal aorta normal in caliber. No periaortic collections. No abdominal adenopathy or free fluid collection. BONES: Within normal limits to the extent included. IMPRESSION: 1. 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 The internal calcification demonstrated on CT scan is poorly appreciated by MRI scan. Further assessment with ERCP or endoscopic ultrasound and biopsy is recommended. 2. Abnormal enlargement and edema of the pancreatic head and prominent surrounding peripancreatic stranding and intra-abdominal fluid, consistent with acute pancreatitis. 3. Trace bilateral pleural effusions with associated atelectatic changes in the lung bases bilaterally.
--- NOTE | 2017-12-21 13:45 | RADIOLOGY REPORT ---
EXAMINATION:\H\ \N\CR CHEST CLINICAL INFORMATION: Presumptive diagnosis of pleural effusion in the setting of acute pancreatitis. COMPARISON: Chest x-ray dated 10/29/2012. TECHNIQUE: AP semierect portable view of the chest was obtained. FINDINGS: The cardiomediastinal silhouette is within normal limits in size. Calcification of the aortic arch is seen. Lungs bilaterally are symmetrically hypoinflated. No focal consolidation, effusion or pneumothorax is seen. Trace pleural effusions seen on prior MRI scan are not appreciated on portable plain film. Bony structures are unremarkable. IMPRESSION: Hypoinflated lungs. Trace pleural effusions seen on prior MRI scan are not appreciated on portable plain film.
--- NOTE | 2017-12-21 19:13 | Cons- Gastroenterology ---
General Information and HPI Consulting Request Date of Consult: 12/21/17 (MD [facility]/GASTROENTEROLOGY) Requested By: Eder RAMIREZ,Mallika Reason for Consult: Pancreatitis Source of Information: family, old records Exam Limitations: unable to give history, clinical condition History of Present Illness: History is obtained from the patient's and son. He is currently sedated. The patient presents with intermittent nausea for approximately 1 year, and abdominal pain (epigastrium, left upper quadrant) for several months, lasting several days in a row with several week to month hiatus. The current admission is because of more severe pain. There's been no weight loss. Bowel movements have remained normal and without reported blood. He had a colonoscopy in [address] Chacko, with removal of 3 adenomas. There is no reported history of liver or previous pancreatic disease. He had an ulcer in the 1970s. He drinks 6 alcoholic beverages per day, for decades. He is tobacco user. Family history is negative for pancreatic disease, GI malignancy. Allergies/Medications Allergies: Coded Allergies: No Known Allergies (12/20/17) Home Med List: Esomeprazole Magnesium (Nexium) 20 MG CAPSULE.DR 1 CAP PO DAILY GI (Reported) Famotidine (Pepcid AC) (Unknown Strength) TABLET (Unknown Dose) PO DAILY SUPPLEMENT (Reported) Guaifenesin (Mucinex) 1,200 MG TAB.ER.12H 1 TAB PO BID MUCUS (Reported) Ibuprofen 200 MG CAPSULE 2 CAP PO PRN PAIN/INFLAMMATION (Reported) Loratadine (Claritin) 10 MG TABLET 1 TAB PO DAILY ALLERGIES (Reported) Olmesartan Medoxomil (Benicar) 40 MG TABLET 1 TAB PO DAILY BP (Reported) Current Medications: Current Medications Sig/Óscar Start time Last Medication Dose Route Stop Time Status Admin Acetaminophen 325 MG Q6P PRN 12/20 2345 AC PO Enoxaparin Sodium 40 MG DAILY 12/21 1000 AC 12/21 SC 0913 Folic Acid 1 MG DAILY 12/21 1000 AC 12/21 PO 0913 Hydromorphone HCl 0 .STK-MED ONE 12/21 0009 DC .ROUTE Hydromorphone HCl 1 MG Q6P PRN 12/20 2345 AC 12/21 IV 1352 Hydromorphone HCl 0 .STK-MED ONE 12/20 2005 DC .ROUTE Hydromorphone HCl 1 MG ONCE ONE 12/20 1999 DC 12/20 IV 12/20 Lactated Ringer's 1,000 ML Q6H 12/21 1530 AC 12/21 IV 1636 Lactated Ringer's 1,000 ML ONCE ONE 12/21 0530 CAN IV 12/21 1029 Lactated Ringer's 1,000 ML .Q5H ONE 12/21 0530 DC 12/21 IV 12/21 1029 0549 Lorazepam 0 .STK-MED ONE 12/21 0008 DC PO Lorazepam 2 MG Q6 12/20 2359 AC 12/21 PO 1847 Lorazepam 0 Q1P PRN 12/20 2345 AC IV Losartan Potassium 75 MG DAILY 12/22 1000 AC PO Losartan Potassium 50 MG DAILY 12/21 1000 DC 12/21 PO 0913 Nicotine 14 MG Q24 12/21 1000 AC 12/21 TOP 0913 Ondansetron HCl 4 MG Q6P PRN 12/20 2345 AC IV Oxycodone HCl 5 MG Q6P PRN 12/20 2345 AC 12/21 PO 1254 Pantoprazole Sodium 40 MG DAILY 12/21 1000 AC 12/21 IV 0913 Sodium Chloride 1,000 ML BOLUS ONE 12/20 1945 DC 12/20 IV 12/20 2044 1948 Sodium Chloride 1,000 ML ONCE ONE 12/20 1945 DC 12/20 IV 12/21 0224 2205 Thiamine HCl 100 MG DAILY 12/21 1000 AC 12/21 PO 0913 Past History Travel History Traveled to [place] past 21 day No Medical History Neurological: NONE EENT: NONE Cardiovascular: hypertension Respiratory: COPD Gastrointestinal: GERD Hepatic: NONE Renal: NONE Musculoskeletal: NONE Psychiatric: NONE Endocrine: NONE Blood Disorders: NONE Cancer(s): NONE 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 Home Smoking Status: Former Smoker ETOH Use: heavy use Illicit Drug Use: denies illicit drug use Review of Systems Review of Systems: Unobtainable Exam & Diagnostic Data Vital Signs and I&O Vital Signs Date Time Temp Pulse Resp B/P B/P Pulse O2 O2 Flow FiO2 Mean Ox Delivery Rate 12/21 1241 96.5 96 20 158/92 98 Room Air Room Air 12/21 1200 96.5 96 20 158/92 12/21 0913 88 160/102 12/21 0706 97.6 88 18 160/102 97 12/21 0400 95 Room Air 12/21 0336 97.8 83 18 160/84 96 12/21 0057 97.8 86 20 186/92 97 12/21 0056 97.8 86 20 186/92 12/20 2204 97.2 77 18 197/93 99 Room Air Intake & Output 12/21 1600 12/21 0400 12/20 1600 12/20 0400 12/19 1600 12/19 0400 Intake Total 920 1000 Output Total Balance 920 1000 Intake, IV 800 1000 Intake, Oral 120 Patient 164 lb Weight Weight Reported by Patient Measurement Method Physical Exam: Sedated. Skin without lesion, rash or jaundice. No stigmata of chronic liver disease. No adenopathy. Sclera anicteric, conjunctivae injected. No oropharyngeal lesion. Neck supple without thyromegaly or mass. Heart regular rhythm. Lungs clear. Abdomen with normal bowel sounds, no palpable mass or organomegaly, and with tenderness in the upper abdomen (patient moans and shifts ). Extremities without clubbing, cyanosis or edema. Pulses intact bilaterally, distally. Results Pertinent Lab Results: Laboratory Tests 12/21 714 Chemistry Sodium (137 - 145 mmol/L) 135 L Potassium (3.5 - 5.1 mmol/L) 4.0 Chloride (98 - 107 mmol/L) 102 Carbon Dioxide (22 - 30 mmol/L) 23 Anion Gap (5 - 16) 10 BUN (9 - 20 mg/dL) 13 Creatinine (0.7 - 1.2 mg/dL) 0.7 Estimated GFR (>60 ml/min) > 60 BUN/Creatinine Ratio (7 - 25 %) 18.6 Total Bilirubin (0.2 - 1.3 mg/dL) 0.4 Direct Bilirubin (< 0.4 mg/dL) 0.3 GGT (15 - 73 U/L) 407 H AST (17 - 59 U/L) 118 H ALT (21 - 72 U/L) 119 H Alkaline Phosphatase (< 127 U/L) 99 Total Protein (6.3 - 8.2 g/dL) 6.2 L Albumin (3.5 - 5.0 g/dL) 3.2 L Triglycerides (<150 mg/dL) 119 Cholesterol (< 200 MG/DL) 141 LDL Cholesterol, Calc (65 - 129 mg/dL) 82 HDL Cholesterol (40 - 60 mg/dL) 36 L Cholesterol/HDL Ratio (0.00 - 4.88 %) 4 Free T4 (0.78 - 2.44 ng/dL) 0.93 Total T3 (0.97 - 1.69 ng/mL) 1.03 TSH &T3 &Free T4 Intrp (0.27 - 4.20 uIU/mL) 5.570 H Hematology CBC w Diff NO MAN DIFF REQ WBC (4.8 - 10.8 /CUMM) 9.3 RBC (4.70 - 6.10 /CUMM) 4.63 L Hgb (14.0 - 18.0 G/DL) 14.9 Hct (42 - 52 %) 44.2 MCV (80.0 - 94.0 FL) 95.5 H MCH (27.0 - 31.0 PG) 32.2 H MCHC (33.0 - 37.0 G/DL) 33.7 RDW (11.5 - 14.5 %) 15.0 H Plt Count (130 - 400 /CUMM) 167 MPV (7.4 - 10.4 FL) 7.9 Gran % (42.2 - 75.2 %) 85.9 H Lymphocytes % (20.5 - 51.1 %) 7.0 L Monocytes % (1.7 - 9.3 %) 6.0 Eosinophils % (0 - 5 %) 0.3 Basophils % (0.0 - 2.0 %) 0.8 Absolute Granulocytes (1.4 - 6.5 /CUMM) 8.0 H Absolute Lymphocytes (1.2 - 3.4 /CUMM) 0.6 L Absolute Monocytes (0.10 - 0.60 /CUMM) 0.6 Absolute Eosinophils (0.0 - 0.7 /CUMM) 0 Absolute Basophils (0.0 - 0.2 /CUMM) 0.1 Serology Hepatitis A IgM Ab (NONREACTIVE) NONREACTIVE Hep Bs Antigen (NONREACTIVE) NONREACTIVE Hep B Core IgM Ab Conf (NONREACTIVE) NONREACTIVE Hepatitis C Antibody (NONREACTIVE) NONREACTIVE HIV 1&2 Ab Western Blot (NONREACTIVE) NONREACTIVE Toxicology Acetaminophen (10.0 - 30.0 ug/mL) < 10.0 L 12/20 12/20 1805 1645 Chemistry Sodium (137 - 145 mmol/L) 136 L Potassium (3.5 - 5.1 mmol/L) 4.3 Chloride (98 - 107 mmol/L) 96 L Carbon Dioxide (22 - 30 mmol/L) 27 Anion Gap (5 - 16) 12 BUN (9 - 20 mg/dL) 14 Creatinine (0.7 - 1.2 mg/dL) 0.9 Estimated GFR (>60 ml/min) > 60 BUN/Creatinine Ratio (7 - 25 %) 15.6 Glucose (65 - 99 mg/dL) 127 H Calcium (8.4 - 10.2 mg/dL) 9.5 Magnesium (1.6 - 2.3 mg/dL) 1.7 Total Bilirubin (0.2 - 1.3 mg/dL) 1.6 H Direct Bilirubin (< 0.4 mg/dL) 1.2 H AST (17 - 59 U/L) 518 H ALT (21 - 72 U/L) 203 H Alkaline Phosphatase (< 127 U/L) 137 H Troponin I (<0.11 ng/ml) < 0.01 Total Protein (6.3 - 8.2 g/dL) 7.6 Albumin (3.5 - 5.0 g/dL) 4.1 Globulin (1.9 - 4.2 gm/dL) 3.5 Albumin/Globulin Ratio (1.1 - 2.2 %) 1.2 Amylase (30 - 110 U/L) 2428 H Lipase (23 - 300 U/L) 18621 H Hematology CBC w Diff NO MAN DIFF REQ WBC (4.8 - 10.8 /CUMM) 8.0 RBC (4.70 - 6.10 /CUMM) 4.90 Hgb (14.0 - 18.0 G/DL) 15.6 Hct (42 - 52 %) 46.8 MCV (80.0 - 94.0 FL) 95.4 H MCH (27.0 - 31.0 PG) 31.9 H MCHC (33.0 - 37.0 G/DL) 33.4 RDW (11.5 - 14.5 %) 14.7 H Plt Count (130 - 400 /CUMM) 242 MPV (7.4 - 10.4 FL) 7.4 Gran % (42.2 - 75.2 %) 80.9 H Lymphocytes % (20.5 - 51.1 %) 12.9 L Monocytes % (1.7 - 9.3 %) 4.9 Eosinophils % (0 - 5 %) 1.0 Basophils % (0.0 - 2.0 %) 0.3 Absolute Granulocytes (1.4 - 6.5 /CUMM) 6.5 Absolute Lymphocytes (1.2 - 3.4 /CUMM) 1.0 L Absolute Monocytes (0.10 - 0.60 /CUMM) 0.4 Absolute Eosinophils (0.0 - 0.7 /CUMM) 0.1 Absolute Basophils (0.0 - 0.2 /CUMM) 0 Toxicology Serum Alcohol (<10 MG/DL) < 10.0 Urines Urine Color Cancelled Urine Clarity Cancelled Urine pH Cancelled Ur Specific [place] Cancelled Urine Protein Cancelled Urine Ketones Cancelled Urine Nitrite Cancelled Urine Bilirubin Cancelled Urine Urobilinogen Cancelled Ur Leukocyte Esterase Cancelled Ur Microscopic Cancelled Urine Hemoglobin Cancelled Urine Glucose Cancelled Imaging/Other Studies: CT scan on December 20 IMPRESSION: Large cystic lesion within the pancreatic head which favors a prominently dilated pancreatic duct containing coarse internal calcifications. There are additional scattered calcifications throughout the parenchyma of the pancreatic head and neck with prominent surrounding peripancreatic edema and inflammatory changes. No discrete peripancreatic fluid collection. Findings most likely represent acute on chronic pancreatitis. Underlying malignancy within the pancreas is not completely excluded. Consider MRI of the abdomen with and without intravenous contrast for further evaluation. No cholecystitis. Ultrasound today IMPRESSION: 1. No sonographic evidence of gallstones. 2. Abnormal appearing pancreas with dilated duct and calcifications. 3. Small amount of fluid is identified around the gallbladder, likely representing small amount of ascites. MRI/MRCP today IMPRESSION: 1. 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 The internal calcification demonstrated on CT scan is poorly appreciated by MRI scan. Further assessment with ERCP or endoscopic ultrasound and biopsy is recommended. 2. Abnormal enlargement and edema of the pancreatic head and prominent surrounding peripancreatic stranding and intra-abdominal fluid, consistent with acute pancreatitis. 3. Trace bilateral pleural effusions with associated atelectatic changes in the lung bases bilaterally. Assessment/Plan Assessment/Recommendations: 1. Acute pancreatitis, with elevated pancreatic enzymes and evidence of inflammation on imaging. Hematocrit has decreased with hydration, and there is no elevation in BUN. There is no acidemia, leukocytosis. There is no evident pancreatic necrosis. Etiology is likely secondary to obstruction from the cystic lesion (especially given dilated pancreatic duct upstream), and/or alcohol. There is no cholelithiasis on ultrasound, and no evident choledocholithiasis on MRCP (although there was a significant drop in aminotransferases and bilirubin overnight). The recurrent pain over the past several months may indeed have been secondary to recurrent acute pancreatitis. 2. Cystic lesion of the pancreas. This is accompanied by dilated duct upstream. The cyst has a thick irregular wall, and septation. It appears to be in communication with the main pancreatic duct. It is concerning for a cystic neoplasm (main duct type PMN), more likely than an intrapancreatic pseudocyst. It is likely the cause of, or at least contributing to, the acute pancreatitis. 3. Elevated liver enzymes. These have decreased overnight. There may have been some component of biliary obstruction, such as from pancreatic head edema, although not noted on MRCP. 4. History of colonic tubular adenomas. The patient is overdue for surveillance colonoscopy, unless he had it done in the [place] area more recently. Recommendations * Continue nothing by mouth for now, with aggressive IV hydration, and monitoring of input and output * Follow CBC, CMP, O2 sat * Eventual EUS, performed as an outpatient * Alcohol withdrawal /CIWA protocol * Obtain outpatient [place] [facility] records. Copies To: Luis RAMIREZ,Nikolas Rhodes. Consult Acknowledgment - Thank you for your consult request.
[2017-12-21 22:58] VITALS: BP 130/88
--- NOTE | 2017-12-22 07:33 | PN- Housestaff ---
Rochelle Minaya 12/22/17 0732: Subjective Follow-up For: Acute pancreatitis large intraductal papillary mucinous neoplasm Elevated blood pressure Alcohol withdrawal Subjective: Patient is seen and examined this morning, appears slightly confused. Still reports nausea with abdominal discomfort Blood pressure on the high side of the vitals are stable. Review of Systems Constitutional: Denies: diaphoresis, fever, malaise. EENTM: Denies: blurred vision, double vision, visual changes, eye pain. Cardiovascular: Denies: chest pain, edema, orthopena. Respiratory: Denies: cough, hemoptysis, orthopnea. Gastrointestinal: Denies: bloating, constipation, diarrhea. Genitourinary: Denies: dysuria, frequency. Musculoskeletal: Denies: gout, joint pain. Objective Last 24 Hrs of Vital Signs/I&O Vital Signs Date Time Temp Pulse Resp B/P B/P Pulse O2 O2 Flow FiO2 Mean Ox Delivery Rate 12/22 1328 98.1 101 20 165/100 95 Room Air 12/22 0848 178/100 12/22 0735 97.5 97 18 162/100 94 Room Air 12/21 2258 97.7 89 20 130/88 95 Room Air Intake & Output 12/22 1600 12/22 0800 12/22 0000 Intake Total 1000 1200 Output Total 300 Balance 1000 900 Intake, IV 940 1200 Intake, Oral 60 0 Number 0 0 Bowel Movements Output, Urine 300 Physical Exam General Appearance: SLIGHTLY CONFUSED HEENT: Atraumatic, PERRLA Neck: Supple, No JVD Cardiovascular: Regular Rate, Normal S1, Normal S2 Lungs: Clear to Auscultation, Normal Air Movement Abdomen: Normal Bowel Sounds, Soft, No Tenderness Neurological: Normal Gait, Normal Speech Current Medications: Current Medications Sig/Óscar Start time Last Medication Dose Route Stop Time Status Admin Acetaminophen 325 MG Q6P PRN 12/20 2345 AC PO Enoxaparin Sodium 40 MG DAILY 12/21 1000 AC 12/22 SC 0849 Folic Acid 1 MG DAILY 12/21 1000 AC 12/22 PO 0848 Hydromorphone HCl 1 MG Q6P PRN 12/20 2345 AC 12/21 IV 1352 Lactated Ringer's 1,000 ML Q6H 12/21 1530 AC 12/22 IV 0631 Lorazepam 1.5 MG Q6 12/22 1200 AC 12/22 PO 1249 Lorazepam 2 MG Q6 12/20 2359 DC 12/22 PO 0631 Lorazepam 0 Q1P PRN 12/20 2345 AC 12/22 IV 1032 Losartan Potassium 75 MG DAILY 12/22 1000 AC 12/22 PO 0848 Losartan Potassium 50 MG DAILY 12/21 1000 DC 12/21 PO 0913 Nicotine 14 MG Q24 12/21 1000 AC 12/22 TOP 0849 Ondansetron HCl 4 MG Q6P PRN 12/20 2345 AC IV Oxycodone HCl 5 MG Q6P PRN 12/20 2345 AC 12/21 PO 1254 Pantoprazole Sodium 40 MG DAILY 12/21 1000 AC 12/22 IV 0849 Thiamine HCl 100 MG DAILY 12/21 1000 AC 12/22 PO 0848 Last 24 Hrs of Lab/Josh Results Last 24 Hrs of Labs/Mics: Laboratory Tests 12/22/17 0616: Anion Gap 14, Estimated GFR > 60, BUN/Creatinine Ratio 21.7, CBC w Diff NO MAN DIFF REQ, RBC 4.26 L, MCV 95.8 H, MCH 32.4 H, MCHC 33.8, RDW 14.7 H, MPV 8.3 , Gran % 87.8 H, Lymphocytes % 4.8 L, Monocytes % 7.3, Eosinophils % 0, Basophils % 0.1, Absolute Granulocytes 12.1 H, Absolute Lymphocytes 0.7 L, Absolute Monocytes 1.0 H, Absolute Eosinophils 0, Absolute Basophils 0 12/21/17 2200: Urine Opiates Screen 1228.00, Methadone Screen < 40, Barbiturate Screen < 60, Ur Phencyclidine Scrn < 6.00, Amphetamines Screen < 100, U Benzodiazepines Scrn < 85, Urine Cocaine Screen < 50, Urine Cannabis Screen < 5.00, Urinalysis LIGHT H , Urine Color YEL, Urine Clarity CLEAR, Urine pH 6.0, Ur Specific [place] 1.025, Urine Protein TRACE H, Urine Ketones 15 H, Urine Nitrite NEG, Urine Bilirubin NEG, Urine Urobilinogen 1.0, Ur Leukocyte Esterase NEG, Ur Microscopic SEDIMENT EXAMINED, Urine RBC 3-5, Urine WBC RARE, Ur Epithelial Cells RARE, Urine Mucus MANY H, Urine Hemoglobin TRACE-INTACT H, Urine Glucose NEG Assessment/Plan Assessment: Patient is a 72-year-old gentleman with past medical history significant for hypertension, COPD, hay fever/ allergies, acid reflux, Peyronie's disease, cervical fusion resulting in significant debilitation presented to the ED for the evaluation of severe epigastric pain with nausea and vomiting. CT abdomen and pelvis revealed Large cystic lesion within the pancreatic head which favors a prominently dilated pancreatic duct containing coarse internal calcifications. There are additional scattered calcifications throughout the parenchyma of the pancreatic head and neck with prominent surrounding peripancreatic edema and inflammatory changeS. Later on MRI of the abdomen showed arge complex cystic mass with thickened and enhancing carter and internal enhancing septation is seen in direct communication with the main pancreatic duct, most consistent with a large intraductal papillary mucinous neoplasm With Abnormal enlargement and edema of the pancreatic head and prominent surrounding peripancreatic stranding and intra-abdominal fluid, consistent with acute pancreatitis. Problem list Acute pancreatitis CT scan consistent with large intraductal papillary mucinous neoplasm Alcohol withdrawal Elevated blood pressure Plan Acute pancreatitis * Continue to monitor patient on [facility] floor * Will continue with the fluids at rate of 150 mL per hour, consider starting him on clear liquid diet later during the day if nausea improves. large intraductal papillary mucinous neoplasm : * Patient and the family has been informed about the CAT scan results * Hepatitis panel , negative with negative HIV results, urine toxicology benign * Patient has been evaluated by GI recommended outpatient EUS for further evaluation of the cystic mass /neoplasm History of alcohol abuse * Will decrease scheduled Ativan to 0.5 mg every 6 hours continue Ativan as per CIWA protocol. * Continue Ativan as per CIWA protocol. * Maintain aspiration and seizure precautions * continue thiamine, folate and vitamin B12 Elevated blood pressure * Blood pressure continues to remain elevated, on 178/100. * Currently losartan dose has been increased to 75 mg , will increase the dose 100 mg DVT prophylaxis: Lovenox. Problem List: 1. Alcoholic hepatitis 2. Pancreatitis Pain Ratin Pain Location: abdominal pain Pain Goal: Remain pain free Pain Plan: PRN PAIN MEDS Tomorrow's Labs & Rationales: CBC ,LFTS Mallika Gaines MD 12/22/17 1051: Attending MD Review Statement Attending Statement Attending MD Statement: examined this patient, discuss w/resident/PA/ASSOCIATE PROFESSOR OF ECONOMICS, agreed w/resident/PA/ASSOCIATE PROFESSOR OF ECONOMICS, reviewed EMR data (avail), discussed with nursing, discussed with case mgmt, reviewed images, amended to note Attending Assessment/Plan: Patient seen and examined, he is now actively withdrawing from alcohol. He is in lizzy and 2 point restrains. Seen by GI. Vital Signs Date Time Temp Pulse Resp B/P B/P Pulse O2 O2 Flow FiO2 Mean Ox Delivery Rate 12/22 0848 178/100 12/22 0735 97.5 97 18 162/100 94 Room Air 12/21 2258 97.7 89 20 130/88 95 Room Air 12/21 1241 96.5 96 20 158/92 98 Room Air Room Air 12/21 1200 96.5 96 20 158/92 on exam; awake, confused. cv; s1,s2 rrr resp; clear abd; soft, mild tenderness in epigastrium, bs+ ext; no edema. Laboratory Tests 12/22 12/21 0616 2200 Chemistry Sodium (137 - 145 mmol/L) 132 L Potassium (3.5 - 5.1 mmol/L) 3.8 Chloride (98 - 107 mmol/L) 93 L Carbon Dioxide (22 - 30 mmol/L) 25 Anion Gap (5 - 16) 14 BUN (9 - 20 mg/dL) 13 Creatinine (0.7 - 1.2 mg/dL) 0.6 L Estimated GFR (>60 ml/min) > 60 BUN/Creatinine Ratio (7 - 25 %) 21.7 Hematology CBC w Diff NO MAN DIFF REQ WBC (4.8 - 10.8 /CUMM) 13.8 H RBC (4.70 - 6.10 /CUMM) 4.26 L Hgb (14.0 - 18.0 G/DL) 13.8 L Hct (42 - 52 %) 40.8 L MCV (80.0 - 94.0 FL) 95.8 H MCH (27.0 - 31.0 PG) 32.4 H MCHC (33.0 - 37.0 G/DL) 33.8 RDW (11.5 - 14.5 %) 14.7 H Plt Count (130 - 400 /CUMM) 182 MPV (7.4 - 10.4 FL) 8.3 Gran % (42.2 - 75.2 %) 87.8 H Lymphocytes % (20.5 - 51.1 %) 4.8 L Monocytes % (1.7 - 9.3 %) 7.3 Eosinophils % (0 - 5 %) 0 Basophils % (0.0 - 2.0 %) 0.1 Absolute Granulocytes (1.4 - 6.5 /CUMM) 12.1 H Absolute Lymphocytes (1.2 - 3.4 /CUMM) 0.7 L Absolute Monocytes (0.10 - 0.60 /CUMM) 1.0 H Absolute Eosinophils (0.0 - 0.7 /CUMM) 0 Absolute Basophils (0.0 - 0.2 /CUMM) 0 Toxicology Urine Opiates Screen (>2000 NG/ML) 1228.00 Methadone Screen (>300 NG/ML) < 40 Barbiturate Screen (>200 NG/ML) < 60 Ur Phencyclidine Scrn (>25 NG/ML) < 6.00 Amphetamines Screen (>1000 NG/ML) < 100 U Benzodiazepines Scrn (>200 NG/ML) < 85 Urine Cocaine Screen (>300 NG/ML) < 50 Urine Cannabis Screen (>50 NG/ML) < 5.00 Urines Urinalysis LIGHT H Urine Color (YEL,AMB,STR) YEL Urine Clarity (CLEAR) CLEAR Urine pH (5.0 - 8.0) 6.0 Ur Specific [place] (1.001 - 1.035) 1.025 Urine Protein (NEG,<30 MG/DL) TRACE H Urine Ketones (NEG) 15 H Urine Nitrite (NEG) NEG Urine Bilirubin (NEG) NEG Urine Urobilinogen (0.1 - 1.0 EU/dl) 1.0 Ur Leukocyte Esterase (NEG) NEG Ur Microscopic SEDIMENT EXAMINED Urine RBC (0 - 5 /HPF) 3-5 Urine WBC (0 - 2 /HPF) RARE Ur Epithelial Cells (NONE,FEW) RARE Urine Mucus (FEW,NONE) MANY H Urine Hemoglobin (NEG) TRACE-INTACT H Urine Glucose (N MG/DL) NEG A/P; 72 y/o M with pmh sig for hypertension, arthritis, 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 Abdominal MRI is consistent with pancreatic mass. Appreciate GI input. They recommended outpatient EUS. We'll continue the IV fluids. Will start the patient on clear liquid diet later today. Blood pressure is running high and this could also be secondary to active withdrawal. Losartan can be uptitrated 200 mg if indicated. We'll continue the scheduled Ativan. Please decrease it to 1.5 every 6 scheduled and then continue the when necessary. Continue IV PPI. Continue CIWA protocol. Continue thiamine. DVT prophylaxis: Lovenox.
[2017-12-22 07:35] VITALS: BP 162/100
[2017-12-22 08:44] LABS: ABSOLUTE BASOPHIL COUNT 0 /CUMM (0.0-0.2); ABSOLUTE EOSINOPHIL COUNT 0 /CUMM (0.0-0.7); ABSOLUTE GRANULOCYTE CT 12.1 /CUMM (1.4-6.5); ABSOLUTE LYMPH COUNT 0.7 /CUMM (1.2-3.4); BASOPHIL % 0.1 % (0.0-2.0); EOSINOPHIL % 0 % (0-5); HEMATOCRIT 40.8 % (42-52); MEAN CORPUSCULAR HGB 32.4 PG (27.0-31.0); MEAN CORPUSCULAR HGB CONC 33.8 G/DL (33.0-37.0); MEAN CORPUSCULAR VOLUME 95.8 FL (80.0-94.0); MEAN PLATELET VOLUME 8.3 FL (7.4-10.4); PLATELET COUNT 182 /CUMM (130-400); RBC DISTRIBUTION WIDTH 14.7 % (11.5-14.5); RED BLOOD CELL CT 4.26 /CUMM (4.70-6.10); WHITE BLOOD CELL COUNT 13.8 /CUMM (4.8-10.8)
[2017-12-22 09:35] LABS: GRANULOCYTE % 87.8 % (42.2-75.2)
[2017-12-22 13:28] VITALS: BP 165/100
--- NOTE | 2017-12-22 13:43 | Discharge Summary ---
Visit Information Visit Dates Admission Date: 12/20/17 Discharge Date: 12/23/17 Hospital Course Course Attending Physician: Mallika Gaines MD Primary Care Physician: Luis RAMIREZ,Nikolas Saenz Consulting Request: Consulting Specialty: Gastroenterology Hospital Course: 72 year old man with history of pancreatitis, alcohol abuse/withdrawal/ dependence, COPD not on home oxygen, Ching's disease, cervical spine fusion, GERD, osteoarthritis, and polysubstance abuse seen for evaluation of severe abdominal pain. Patient reported that his abdominal pain had been present for rocks nightly 2 years and is now worse. It is described as crampy epigastric nonradiating pain is made worse with consumption of fatty foods. He does admit to new nausea with vomiting and chills. He has a history of drinking 3-4 beers per day and smoking a pack of cigarettes a day for 50 years with a history of cocaine and marijuana use. ED course -Vitals: Temp 95.0-97.8, pulse 56-86 RR 15-20, BP 158-197/83-93, O2 97-99% on room air -CBC: Hgb/HCT 15.6/46.8, WBC 8.0, platelet 242 -BMP: Sodium 136, potassium 4.6, chloride 96, CO2 27 urea 14, creatinine 0.9 -LFT: AST 518, ALT 203 ALP 37, total bilirubin 1.6, direct bilirubin 1.2 -Miscellaneous: Amylase 2428, lipase 83446 much troponin I <0.01, magnesium 2.7, serum alcohol <10.0 -CT abdomen/pelvis with IV contrast: Large cystic lesion within the pancreatic head which favors a prominently dilated pancreatic duct containing coarse internal calcifications. There are additional scattered calcifications throughout the parenchyma of the pancreatic head and neck with prominent surrounding peripancreatic edema and inflammatory changes. No discrete peripancreatic fluid collection. Findings most likely represent acute on chronic pancreatitis. Underlying malignancy within the pancreas is not completely excluded. Consider MRI of the abdomen with and without intravenous contrast for further evaluation. Problem list -Acute on chronic pancreatitis, possibly alcohol induced -Cystic lesion of the pancreatic head -Chronic alcohol abuse -transaminitis -Hyponatremia -Hypokalemia -tobacco dependence -Polysubstance abuse -Hypertension -COPD, not on home oxygen -Pieroni's Disease -Cervical Spine fusion -GERD -Osteoarthritis -Polysubstance abuse #Acute on chronic pancreatitis, possibly alcohol induced #Hyponatremia Patient was admitted to the general medicine floor and kept nothing by mouth. He was started on intravenous lactated Ringer's at a high rate for fluid resuscitation however was followed off overnight for agitation and new hyponatremia (sodium 126 from 136) and hypokalemia (3.3). Patient denies any further abdominal pain but is a poor historian and only oriented to person. Urine lytes could not be assessed as patient is combative and otherwise incontenent. Alcohol abuse/withdrawal/dependence Patient was started on thiamine, folate, and multivitamin and a scheduled dose of Ativan for alcohol withdrawal. He was maintained on a CIWA protocol and given additional doses of Ativan. He became somnolent/lethargic but aggressive when stimulated for which in bed was required. Cystic lesion of pancreatic head with dilated common bile duct and transaminitis CT abdomen/pelvis with IV contrast and pancreatic protocol demonstrated a large cystic lesion of the pancreas head concerning for malignancy. MRCP was obtained which further commented on the large complex cystic mass in the pancreatic head concerning for large intraductal papillary mucinous neoplasm with recommended further assessment of ERCP/EUS and biopsy. Gastroenterology consult was placed whom recommended an outpatient endoscopic ultrasound of the lesion for further characterization. Patient follows with crystal calibrator Dr. Jere Palma of [place]. Per patient's 's request patient is to be transferred to [facility] to be under the care of his crystal calibrator and their hospital team. Hypertension Patient with history of hypertension on Benicar at home found to have blood pressure elevated as high as 190 systolic in the context of acute pancreatitis and alcoholic drop. Patient was started on losartan 50 mg daily which was increased daily up to 100 mg with minimal effect. Amlodipine 5 mg was added for further blood pressure control. Allergies: Coded Allergies: No Known Allergies (12/20/17) Significant Procedures: SERVICE DATE: 12/20/17 EXAM TYPE: CAT - CT ABD & PELVIS W IV CONTRAST IMPRESSION: Large cystic lesion within the pancreatic head which favors a prominently dilated pancreatic duct containing coarse internal calcifications. There are additional scattered calcifications throughout the parenchyma of the pancreatic head and neck with prominent surrounding peripancreatic edema and inflammatory changes. No discrete peripancreatic fluid collection. Findings most likely represent acute on chronic pancreatitis. Underlying malignancy within the pancreas is not completely excluded. Consider MRI of the abdomen with and without intravenous contrast for further evaluation. No cholecystitis. EXAM TYPE: MRI - MRI-ABD W/O-W ASHLEY IMPRESSION: 1. 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 The internal calcification demonstrated on CT scan is poorly appreciated by MRI scan. Further assessment with ERCP or endoscopic ultrasound and biopsy is recommended. 2. Abnormal enlargement and edema of the pancreatic head and prominent surrounding peripancreatic stranding and intra-abdominal fluid, consistent with acute pancreatitis. 3. Trace bilateral pleural effusions with associated atelectatic changes in the lung bases bilaterally. Chest X-ray IMPRESSION: Hypoinflated lungs. Trace pleural effusions seen on prior MRI scan are not appreciated on portable plain film. SERVICE DATE: 12/21/17 EXAM TYPE: US - US-LIMITED ABDOMEN IMPRESSION: 1. No sonographic evidence of gallstones. 2. Abnormal appearing pancreas with dilated duct and calcifications. 3. Small amount of fluid is identified around the gallbladder, likely representing small amount of ascites. Disposition Summary Disposition Principal Diagnosis: Acute on chronic pancreatitis Altered mental status Alcohol withdrawal New large pancreatic mass Additional Diagnosis: Hyponatremia Hypokalemia Transaminitis Poorly controlled hypertension Discharge Disposition: other general hospital Discharge Instructions General Discharge Information Code Status: Full Code Patient's Diet: Clear liquid diet Patient's Activity: As tolerated Follow-Up Instructions/Appts: Should being transferred to [facility] per patient's family member request. Patient should have and endoscopic ultrasound possibly with biopsy of the newly identified large cystic pancreatic mass either during the hospitalization or as an outpatient when deemed appropriate by gastroenterology. Medications at Discharge Discharge Medications: Stop taking the following medications: Olmesartan Medoxomil (Benicar) 40 MG TABLET ORAL DAILY Qty = 90 Famotidine (Pepcid AC) (Unknown Strength) TABLET ORAL DAILY Continue taking these medications: Ibuprofen (Ibuprofen) 200 MG CAPSULE 2 Capsule ORAL as needed for PAIN/INFLAMMATION Esomeprazole Magnesium (Nexium) 20 MG CAPSULE.DR 1 Capsule ORAL DAILY Loratadine (Claritin) 10 MG TABLET 1 Tablet ORAL DAILY Guaifenesin (Mucinex) 1,200 MG TAB.ER.12H 1 Tablet ORAL TWICE DAILY Start taking the following new medications: Multivitamin (One Daily Multivitamin) 1 EACH TABLET 1 Tablet ORAL DAILY Qty = 30 No Refills Comments: Last Taken:12/23/17 Time:9:30 AM Thiamine HCl (Vitamin B-1) 100 MG TABLET 100 Milligram ORAL DAILY Qty = 30 No Refills Comments: Last Taken:12/23/17 Time:9:29 AM Amlodipine Besylate (Amlodipine Besylate) 5 MG TABLET 5 Milligram ORAL DAILY Qty = 30 No Refills Comments: Last Taken:12/23/17 Time:14:37 PM LORazepam (Ativan) 1 MG TAB 1 Milligram ORAL EVERY SIX HOURS Qty = 4 No Refills Comments: Last Taken:12/23/17 Time:18:00PM Losartan (Cozaar) 100 MG TABLET 100 Milligram ORAL DAILY Qty = 30 No Refills Comments: Last Taken:12/23/17 Time:09:29 AM Pantoprazole Sodium (Pantoprazole Sodium) 40 MG VIAL 40 Milligram INTRAVEN DAILY Qty = 3 No Refills Comments: Last Taken:12/23/17 Time:9:30 AM Copies To: Minerva RAMIREZ,Leonid; Luis RAMIREZ,Nikolas Saenz; Jomar RAMIREZ,Lauro Ortiz
--- NOTE | 2017-12-22 13:50 | PN- Gastroenterology ---
Assessment/Plan Assessment/Recommendations: Assessment: Mr. 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 Recommendations: 1. When pt more alert would advance to a clear liquid diet. 2. Treat signs of etoh withdrawal with benzodiazepenes as needed 3. Periodically follow LFTs 4. Observe off of antibiotics 5. Will tentatively plan for an outpatient EUS to further evaluate the cystic neoplasm on his MRI I will continue to follow this patient and make further recommendations based on his clinical course and results of repeat blood work. Subjective Subjective: Pt disoriented and not able to give any meaningful history. he has been without any nausea or vomiting and isn't complaining of abdominal pain. Objective Vital Signs and I&Os Vital Signs Date Time Temp Pulse Resp B/P B/P Pulse O2 O2 Flow FiO2 Mean Ox Delivery Rate 12/22 1328 98.1 101 20 165/100 95 Room Air 12/22 0848 178/100 12/22 0735 97.5 97 18 162/100 94 Room Air 12/21 2258 97.7 89 20 130/88 95 Room Air Intake & Output 12/22 1600 12/22 0400 12/21 1600 12/21 0400 12/20 1600 12/20 0400 Intake Total 1000 3084 832 7748 Output Total 300 Balance 1000 740 735 9032 Intake, IV 940 1468 358 0204 Intake, Oral 60 0 120 Number 0 0 Bowel Movements Output, Urine 300 Patient 164 lb Weight Weight Reported by Patient Measurement Method Physical Exam General Appearance: well developed/nourished, anxious, mild distress, in restraints. Head: atraumatic Ears, Nose, Throat: normal pharynx, normal ENT inspection Respiratory: normal breath sounds, chest non-tender, no respiratory distress Abdomen: normal bowel sounds, soft, non-tender Extremities: no edema Neurologic/Psychiatric: disoriented x 3 Current Medications: Current Medications Sig/Óscar Start time Last Medication Dose Route Stop Time Status Admin Acetaminophen 325 MG Q6P PRN 12/20 2345 AC PO Enoxaparin Sodium 40 MG DAILY 12/21 1000 AC 12/22 SC 0849 Folic Acid 1 MG DAILY 12/21 1000 AC 12/22 PO 0848 Hydromorphone HCl 1 MG Q6P PRN 12/20 2345 AC 12/21 IV 1352 Lactated Ringer's 1,000 ML Q6H 12/21 1530 AC 12/22 IV 0631 Lorazepam 1.5 MG Q6 12/22 1200 AC 12/22 PO 1249 Lorazepam 2 MG Q6 12/20 2359 DC 12/22 PO 0631 Lorazepam 0 Q1P PRN 12/20 2345 AC 12/22 IV 1032 Losartan Potassium 75 MG DAILY 12/22 1000 AC 12/22 PO 0848 Losartan Potassium 50 MG DAILY 12/21 1000 DC 12/21 PO 0913 Nicotine 14 MG Q24 12/21 1000 AC 12/22 TOP 0849 Ondansetron HCl 4 MG Q6P PRN 12/20 2345 AC IV Oxycodone HCl 5 MG Q6P PRN 12/20 2345 AC 12/21 PO 1254 Pantoprazole Sodium 40 MG DAILY 12/21 1000 AC 12/22 IV 0849 Thiamine HCl 100 MG DAILY 12/21 1000 AC 12/22 PO 0848 Results Pertinent Lab Results: Laboratory Tests 12/22 12/21 0616 2200 Chemistry Sodium (137 - 145 mmol/L) 132 L Potassium (3.5 - 5.1 mmol/L) 3.8 Chloride (98 - 107 mmol/L) 93 L Carbon Dioxide (22 - 30 mmol/L) 25 Anion Gap (5 - 16) 14 BUN (9 - 20 mg/dL) 13 Creatinine (0.7 - 1.2 mg/dL) 0.6 L Estimated GFR (>60 ml/min) > 60 BUN/Creatinine Ratio (7 - 25 %) 21.7 Hematology CBC w Diff NO MAN DIFF REQ WBC (4.8 - 10.8 /CUMM) 13.8 H RBC (4.70 - 6.10 /CUMM) 4.26 L Hgb (14.0 - 18.0 G/DL) 13.8 L Hct (42 - 52 %) 40.8 L MCV (80.0 - 94.0 FL) 95.8 H MCH (27.0 - 31.0 PG) 32.4 H MCHC (33.0 - 37.0 G/DL) 33.8 RDW (11.5 - 14.5 %) 14.7 H Plt Count (130 - 400 /CUMM) 182 MPV (7.4 - 10.4 FL) 8.3 Gran % (42.2 - 75.2 %) 87.8 H Lymphocytes % (20.5 - 51.1 %) 4.8 L Monocytes % (1.7 - 9.3 %) 7.3 Eosinophils % (0 - 5 %) 0 Basophils % (0.0 - 2.0 %) 0.1 Absolute Granulocytes (1.4 - 6.5 /CUMM) 12.1 H Absolute Lymphocytes (1.2 - 3.4 /CUMM) 0.7 L Absolute Monocytes (0.10 - 0.60 /CUMM) 1.0 H Absolute Eosinophils (0.0 - 0.7 /CUMM) 0 Absolute Basophils (0.0 - 0.2 /CUMM) 0 Toxicology Urine Opiates Screen (>2000 NG/ML) 1228.00 Methadone Screen (>300 NG/ML) < 40 Barbiturate Screen (>200 NG/ML) < 60 Ur Phencyclidine Scrn (>25 NG/ML) < 6.00 Amphetamines Screen (>1000 NG/ML) < 100 U Benzodiazepines Scrn (>200 NG/ML) < 85 Urine Cocaine Screen (>300 NG/ML) < 50 Urine Cannabis Screen (>50 NG/ML) < 5.00 Urines Urinalysis LIGHT H Urine Color (YEL,AMB,STR) YEL Urine Clarity (CLEAR) CLEAR Urine pH (5.0 - 8.0) 6.0 Ur Specific Ringold (1.001 - 1.035) 1.025 Urine Protein (NEG,<30 MG/DL) TRACE H Urine Ketones (NEG) 15 H Urine Nitrite (NEG) NEG Urine Bilirubin (NEG) NEG Urine Urobilinogen (0.1 - 1.0 EU/dl) 1.0 Ur Leukocyte Esterase (NEG) NEG Ur Microscopic SEDIMENT EXAMINED Urine RBC (0 - 5 /HPF) 3-5 Urine WBC (0 - 2 /HPF) RARE Ur Epithelial Cells (NONE,FEW) RARE Urine Mucus (FEW,NONE) MANY H Urine Hemoglobin (NEG) TRACE-INTACT H Urine Glucose (N MG/DL) NEG 12/21 12/21 0715 0600 Chemistry Sodium (137 - 145 mmol/L) 135 L Potassium (3.5 - 5.1 mmol/L) 4.0 Chloride (98 - 107 mmol/L) 102 Carbon Dioxide (22 - 30 mmol/L) 23 Anion Gap (5 - 16) 10 BUN (9 - 20 mg/dL) 13 Creatinine (0.7 - 1.2 mg/dL) 0.7 Estimated GFR (>60 ml/min) > 60 BUN/Creatinine Ratio (7 - 25 %) 18.6 Total Bilirubin (0.2 - 1.3 mg/dL) 0.4 Direct Bilirubin (< 0.4 mg/dL) 0.3 GGT (15 - 73 U/L) 407 H AST (17 - 59 U/L) 118 H ALT (21 - 72 U/L) 119 H Alkaline Phosphatase (< 127 U/L) 99 Total Protein (6.3 - 8.2 g/dL) 6.2 L Albumin (3.5 - 5.0 g/dL) 3.2 L Triglycerides (<150 mg/dL) 119 Cholesterol (< 200 MG/DL) 141 LDL Cholesterol, Calc (65 - 129 mg/dL) 82 HDL Cholesterol (40 - 60 mg/dL) 36 L Cholesterol/HDL Ratio (0.00 - 4.88 %) 4 Free T4 (0.78 - 2.44 ng/dL) 0.93 Total T3 (0.97 - 1.69 ng/mL) 1.03 TSH &T3 &Free T4 Intrp (0.27 - 4.20 uIU/mL) 5.570 H Hematology CBC w Diff NO MAN DIFF REQ WBC (4.8 - 10.8 /CUMM) 9.3 RBC (4.70 - 6.10 /CUMM) 4.63 L Hgb (14.0 - 18.0 G/DL) 14.9 Hct (42 - 52 %) 44.2 MCV (80.0 - 94.0 FL) 95.5 H MCH (27.0 - 31.0 PG) 32.2 H MCHC (33.0 - 37.0 G/DL) 33.7 RDW (11.5 - 14.5 %) 15.0 H Plt Count (130 - 400 /CUMM) 167 MPV (7.4 - 10.4 FL) 7.9 Gran % (42.2 - 75.2 %) 85.9 H Lymphocytes % (20.5 - 51.1 %) 7.0 L Monocytes % (1.7 - 9.3 %) 6.0 Eosinophils % (0 - 5 %) 0.3 Basophils % (0.0 - 2.0 %) 0.8 Absolute Granulocytes (1.4 - 6.5 /CUMM) 8.0 H Absolute Lymphocytes (1.2 - 3.4 /CUMM) 0.6 L Absolute Monocytes (0.10 - 0.60 /CUMM) 0.6 Absolute Eosinophils (0.0 - 0.7 /CUMM) 0 Absolute Basophils (0.0 - 0.2 /CUMM) 0.1 Serology Hepatitis A IgM Ab (NONREACTIVE) NONREACTIVE Hep Bs Antigen (NONREACTIVE) NONREACTIVE Hep B Core IgM Ab Conf (NONREACTIVE) NONREACTIVE Hepatitis C Antibody (NONREACTIVE) NONREACTIVE HIV 1&2 Ab Western Blot (NONREACTIVE) NONREACTIVE Toxicology Methadone Screen Cancelled Acetaminophen (10.0 - 30.0 ug/mL) < 10.0 L Barbiturate Screen Cancelled Ur Phencyclidine Scrn Cancelled Amphetamines Screen Cancelled U Benzodiazepines Scrn Cancelled Urine Cocaine Screen Cancelled Urine Cannabis Screen Cancelled 12/20 12/20 1805 1645 Chemistry Sodium (137 - 145 mmol/L) 136 L Potassium (3.5 - 5.1 mmol/L) 4.3 Chloride (98 - 107 mmol/L) 96 L Carbon Dioxide (22 - 30 mmol/L) 27 Anion Gap (5 - 16) 12 BUN (9 - 20 mg/dL) 14 Creatinine (0.7 - 1.2 mg/dL) 0.9 Estimated GFR (>60 ml/min) > 60 BUN/Creatinine Ratio (7 - 25 %) 15.6 Glucose (65 - 99 mg/dL) 127 H Calcium (8.4 - 10.2 mg/dL) 9.5 Magnesium (1.6 - 2.3 mg/dL) 1.7 Total Bilirubin (0.2 - 1.3 mg/dL) 1.6 H Direct Bilirubin (< 0.4 mg/dL) 1.2 H AST (17 - 59 U/L) 518 H ALT (21 - 72 U/L) 203 H Alkaline Phosphatase (< 127 U/L) 137 H Troponin I (<0.11 ng/ml) < 0.01 Total Protein (6.3 - 8.2 g/dL) 7.6 Albumin (3.5 - 5.0 g/dL) 4.1 Globulin (1.9 - 4.2 gm/dL) 3.5 Albumin/Globulin Ratio (1.1 - 2.2 %) 1.2 Amylase (30 - 110 U/L) 2428 H Lipase (23 - 300 U/L) 76706 H Hematology CBC w Diff NO MAN DIFF REQ WBC (4.8 - 10.8 /CUMM) 8.0 RBC (4.70 - 6.10 /CUMM) 4.90 Hgb (14.0 - 18.0 G/DL) 15.6 Hct (42 - 52 %) 46.8 MCV (80.0 - 94.0 FL) 95.4 H MCH (27.0 - 31.0 PG) 31.9 H MCHC (33.0 - 37.0 G/DL) 33.4 RDW (11.5 - 14.5 %) 14.7 H Plt Count (130 - 400 /CUMM) 242 MPV (7.4 - 10.4 FL) 7.4 Gran % (42.2 - 75.2 %) 80.9 H Lymphocytes % (20.5 - 51.1 %) 12.9 L Monocytes % (1.7 - 9.3 %) 4.9 Eosinophils % (0 - 5 %) 1.0 Basophils % (0.0 - 2.0 %) 0.3 Absolute Granulocytes (1.4 - 6.5 /CUMM) 6.5 Absolute Lymphocytes (1.2 - 3.4 /CUMM) 1.0 L Absolute Monocytes (0.10 - 0.60 /CUMM) 0.4 Absolute Eosinophils (0.0 - 0.7 /CUMM) 0.1 Absolute Basophils (0.0 - 0.2 /CUMM) 0 Toxicology Serum Alcohol (<10 MG/DL) < 10.0 Urines Urine Color Cancelled Urine Clarity Cancelled Urine pH Cancelled Ur Specific Ringold Cancelled Urine Protein Cancelled Urine Ketones Cancelled Urine Nitrite Cancelled Urine Bilirubin Cancelled Urine Urobilinogen Cancelled Ur Leukocyte Esterase Cancelled Ur Microscopic Cancelled Urine Hemoglobin Cancelled Urine Glucose Cancelled
--- NOTE | 2017-12-22 15:29 | Patient Discharge Instructions ---
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 Please follow-up with the sand car worker for outpatient EUS for further evaluation of the cystic mass /neoplasm Diet Recommended Diet: Heart Healthy Activity Activity Self Limited: Yes Acute Coronary Syndrome Inclusion Criteria At DC or during hospital stay patient has or had the following: ACS DIAGNOSIS No Discharge Core Measures Meds if any: Prescribed or Continued at Discharge Meds if any: NOT Prescribed or Continued at Discharge Congestive Heart Failure Inclusion Criteria At DC or during hospital stay patient has or had the following: CHF DIAGNOSIS No Discharge Core Measures Meds if any: Prescribed or Continued at Discharge Meds if any: NOT Prescribed or Continued at Discharge Cerebrovascular accident Inclusion Criteria At DC or during hospital stay patient has or had the following: CVA/TIA Diagnosis No Discharge Core Measures Meds if any: Prescribed or Continued at Discharge Meds if any: NOT Prescribed or Continued at Discharge Venous thromboembolism Inclusion Criteria VTE Diagnosis No VTE Type NONE VTE Confirmed by (Test) NONE Discharge Core Measures - Per Current guidelines, there needs to be overlap - treatment for the first 5 days of Warfarin therapy. - If discharged on Warfarin prior to 5 days of - overlap therapy, the patient will need to be - assessed for post discharge needs including - *Post discharge parental anticoagulation - *Warfarin and/or parental anticoagulation education - *Follow up date to check INR post discharge At least 5 days overlap therapy as Inpatient No Meds if any: Prescribed or Continued at Discharge Note: Overlap Therapy is Warfarin and Anticoagulant Meds if any: NOT Prescribed or Continued at Discharge
[2017-12-22 22:00] VITALS: BP 148/90
[2017-12-23] VITALS (8 sets, daily range): BP systolic 152–180; BP diastolic 82–103
--- NOTE | 2017-12-23 06:15 | PN- Housestaff ---
Main RAMIREZ,Manish 12/23/17 0601: Subjective Follow-up For: Acute on chronic pancreatitis Alcohol withdrawal Pancreatic mass Subjective: Patient seen and examined. He is seen lying on his side in bed resting comfortably; there is an unzipped Net Bed in place. He appears to be in no acute distress. His son Jose and his Liz are present at bedside and are requesting to have their loved one transfered to [facility] today where his tar processing technician is. Patient is oriented only to self and is minimally arousable and easily becomes agitated if stimulated. Review of systems is unobtainable. Review of Systems Constitutional: Reports: see HPI. Objective Last 24 Hrs of Vital Signs/I&O Vital Signs Date Time Temp Pulse Resp B/P B/P Pulse O2 O2 Flow FiO2 Mean Ox Delivery Rate 12/23 1437 100 160/90 12/23 1353 98.1 103 20 160/90 95 Room Air 12/23 1200 95 18 180/102 12/23 1157 95 180/102 12/23 1000 96 164/92 12/23 0929 96 164/92 12/23 0800 95 160/90 12/23 0656 98.7 101 18 171/103 91 Room Air 12/22 2200 99.0 101 20 148/90 94 Room Air Intake & Output 12/23 1600 12/23 0800 12/23 0000 Intake Total 480 720 Output Total Balance 480 720 Intake, Oral 480 720 Physical Exam General Appearance: No Acute Distress Other Physical Findings: GEN- thin, tired appearing elderly man in no acute distress HEENT - NCAT, PERRL, EOMI, anicteric sclera CARD - normal S1/S2 w/o m/g/r; RRR PULM - CTA bilaterally Neuro- Somnolent, lethargic, CN II-XII grossly intact PSYCH - AAOx3, agitated, minimally verbal, poor eye contact EXT - normal pulses, no edema Current Medications: Current Medications Sig/Óscar Start time Last Medication Dose Route Stop Time Status Admin Acetaminophen 325 MG Q6P PRN 12/20 2345 AC PO Amlodipine Besylate 5 MG DAILY 12/23 1158 AC 12/23 PO 1437 Enoxaparin Sodium 40 MG DAILY 12/21 1000 AC 12/23 SC 0930 Folic Acid 1 MG DAILY 12/21 1000 AC 02/14 PO 0929 Hydromorphone HCl 1 MG Q6P PRN 12/20 2345 AC 12/21 IV 1352 Lorazepam 1 MG Q6 12/23 1200 AC 12/23 PO 1152 Lorazepam 1.5 MG Q6 12/22 1200 DC 12/23 PO 0520 Lorazepam 0 Q1P PRN 12/20 2345 AC 12/22 IV 1951 Losartan Potassium 100 MG DAILY 12/23 1000 AC 12/23 PO 0929 Losartan Potassium 75 MG DAILY 12/22 1000 DC 12/22 PO 0848 Multivitamins 1 TAB DAILY 12/23 1000 AC 12/23 PO 0930 Nicotine 14 MG Q24 12/21 1000 AC 12/23 TOP 0930 Ondansetron HCl 4 MG Q6P PRN 12/20 2345 AC IV Oxycodone HCl 5 MG Q6P PRN 12/20 2345 AC 12/22 PO 2117 Pantoprazole Sodium 40 MG DAILY 12/21 1000 AC 12/23 IV 0930 Sodium Chloride 1,000 ML Q10H 12/22 1445 DC IV Thiamine HCl 100 MG DAILY 12/21 1000 AC 12/23 PO 0929 Last 24 Hrs of Lab/Josh Results Last 24 Hrs of Labs/Mics: Laboratory Tests 12/23/17 1122: Ammonia 28 12/23/17 1122: Anion Gap 7, Estimated GFR > 60, BUN/Creatinine Ratio 23.3, Total Bilirubin 0.7, Direct Bilirubin 0.2, AST 43, ALT 53, Alkaline Phosphatase 62, Total Protein 5.9 L, Albumin 3.0 L, CBC w Diff NO MAN DIFF REQ, RBC 3.97 L, MCV 94.9 H, MCH 32.5 H, MCHC 34.3, RDW 14.2, MPV 7.9, Gran % 86.3 H, Lymphocytes % 7.2 L, Monocytes % 6.2, Eosinophils % 0.1, Basophils % 0.2, Absolute Granulocytes 11.2 H, Absolute Lymphocytes 0.9 L, Absolute Monocytes 0.8 H, Absolute Eosinophils 0, Absolute Basophils 0 Microbiology 12/22 1611 BLOOD: Blood Culture - RES 12/22 1458 BLOOD: Blood Culture - RES Assessment/Plan Assessment: 72 year old man with multiple medical problems significant for alcohol and polysubstance abuse seen for evaluation of severe acute epigastric abdominal pain found to have pancreatitis. CT Abdomen/pelvis with IV contrast demonstrated a large cystic pancreatic mass. Last night patient became agitated with his heart rate reaching up to the 160s. The net bed remained in place. His IV was ripped out of his hand and nursing staff was unable to replace it; his fluids have been off since this even. He denies any abdominal pain but is not a reliable historian. Per patients family request patient is being transferred to [facility] as their daughter works there and there primary tar processing technician practices there. His CIWA was as high as 16 yesterday evening requiring 2 mg of additional ativan however has consistently had low scores since. His ativan is tapered from 1.5 mg every six hours to 1 mg. His blood pressure was elevated today for which his losartan was increased with minimal improvement. Norvasc 5 mg was added for further control. His potassium and sodium were found to be low today; urine lytes were ordered but were unable to be assessed as patient is incontinent of urine. 1200 cc fluid restriction was started. If patient is unable to be transferred today he may require inpatient nephrology evaluation for his hyponatremia and hypokalemia. Problem List: -Acute on chronic alcoholic pancreatitis -EtOH Abuse / Withdrawal / Dependence -Hyponatremia -Transaminitis -New Pancreatic Mass -Hypertension -COPD, not on home oxygen -Pieroni's Disease -Cervical Spine fusion -GERD -Osteoarthritis -Polysubstance abuse Plan -Transfer to [facility] -Aspiration / Seizure Precautions -Guaic all stools -CIWA with Ativan PRN -Decrease Ativan to 1.0 mg PO Q6H -Thiamine / Folate / Multivitamin -Protonix 40 mg IV Daily -Zofran PRN for nausea -Increase Losartan to 100 mg daily -Start Amlodipine 5 mg Daily -Consults with gastroenterology and social work -Pain Control with Tylenol, Dilaudid -Clear liquid diet, 1200 cc fluid restriction -DVT PPx: Lovenox -FULL CODE -Outpatient endoscopic ultrasound for pancreatic mass Problem List: 1. Acute on chronic pancreatitis 2. Cystic lesion of abdominal viscera Pain Ratin Pain Location: Abdomen Pain Goal: Pain 4 or less Pain Plan: See assessment Tomorrow's Labs & Rationales: BMP- hyponatremia, hypokalemia CBC - leukocytosis Mallika Gaines MD 12/23/17 1238: Attending MD Review Statement Attending Statement Attending MD Statement: examined this patient, discuss w/resident/PA/ADULT NEUROLOGIST, agreed w/resident/PA/ADULT NEUROLOGIST, discussed with family, reviewed EMR data (avail), discussed with nursing, discussed with case mgmt, reviewed images, amended to note Attending Assessment/Plan: Patient seen and examined, he is actively withdrawing from alcohol. He is in a net bed and complains confused and agitated. Vital Signs Date Time Temp Pulse Resp B/P B/P Pulse O2 O2 Flow FiO2 Mean Ox Delivery Rate 12/23 1200 95 18 180/102 12/23 1157 95 180/102 12/23 1000 96 164/92 12/23 0929 96 164/92 12/23 0800 95 160/90 12/23 0656 98.7 101 18 171/103 91 Room Air 12/22 2200 99.0 101 20 148/90 94 Room Air 12/22 1328 98.1 101 20 165/100 95 Room Air on exam; awake, confused, agitated. cv; s1,s2 rrr resp; clear abd; soft, mild generalized tenderness, bs+ ext; no edema. Laboratory Tests 12/23 12/23 1122 1122 Chemistry Sodium (137 - 145 mmol/L) 126 L Potassium (3.5 - 5.1 mmol/L) 3.3 L Chloride (98 - 107 mmol/L) 93 L Carbon Dioxide (22 - 30 mmol/L) 26 Anion Gap (5 - 16) 7 BUN (9 - 20 mg/dL) 14 Creatinine (0.7 - 1.2 mg/dL) 0.6 L Estimated GFR (>60 ml/min) > 60 BUN/Creatinine Ratio (7 - 25 %) 23.3 Total Bilirubin (0.2 - 1.3 mg/dL) 0.7 Direct Bilirubin (< 0.4 mg/dL) 0.2 AST (17 - 59 U/L) 43 ALT (21 - 72 U/L) 53 Alkaline Phosphatase (< 127 U/L) 62 Ammonia (9 - 30 umol/L) 28 Total Protein (6.3 - 8.2 g/dL) 5.9 L Albumin (3.5 - 5.0 g/dL) 3.0 L Hematology CBC w Diff Pending WBC Pending RBC Pending Hgb Pending Hct Pending MCV Pending MCH Pending MCHC Pending RDW Pending Plt Count Pending MPV Pending Gran % Pending Lymphocytes % Pending Monocytes % Pending Eosinophils % Pending Basophils % Pending Absolute Granulocytes Pending Absolute Lymphocytes Pending Absolute Monocytes Pending Absolute Eosinophils Pending Absolute Basophils Pending A/P; 72 y/o M with pmh sig for hypertension, arthritis, 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 Abdominal MRI shows pancreatic mass. Patient also having alcohol withdrawal. His sodium dropped today 126. White blood cell count is pending. He did have leukocytosis yesterday. Patient's family would like him to be transferred to [facility] because patient's daughter works there as a nurse. They had no problem with the care provided at [facility] but date just want patient to be transferred to [place] so that the daughter can be around. We have started the process and I have called [facility]. I'm waiting to hear back from their accepting doctor. In the meantime I have told the case management to look for the insurance coverage. We'll continue the Ativan with a taper. Noted patient's blood pressure is running high. Was acting dose has been increased and I agree with adding Norvasc. He might have to use hydralazine when necessary. Sodium dropping, patient did receive IV fluids for acute pancreatitis. At this point we have to lower the rate of IV fluids. If patient stays at [place] and I would recommend getting a nephrology evaluation. We should also check urine studies for urine lites but I'm not sure how I could they would be not that the patient has received significant amount of IV fluids already. We should monitor the sodium more frequently if patient stays here. DVt Px; Lovenox. Total time spent in taking care of this patient is 45 mins.
[2017-12-23 12:00] LABS: ABSOLUTE BASOPHIL COUNT 0 /CUMM (0.0-0.2); ABSOLUTE EOSINOPHIL COUNT 0 /CUMM (0.0-0.7); ABSOLUTE GRANULOCYTE CT 11.2 /CUMM (1.4-6.5); ABSOLUTE LYMPH COUNT 0.9 /CUMM (1.2-3.4); ABSOLUTE MONOCYTE COUNT 0.8 /CUMM (0.10-0.60); BASOPHIL % 0.2 % (0.0-2.0); EOSINOPHIL % 0.1 % (0-5); HEMATOCRIT 37.7 % (42-52); MEAN CORPUSCULAR HGB 32.5 PG (27.0-31.0); MEAN CORPUSCULAR HGB CONC 34.3 G/DL (33.0-37.0); MEAN CORPUSCULAR VOLUME 94.9 FL (80.0-94.0); MEAN PLATELET VOLUME 7.9 FL (7.4-10.4); PLATELET COUNT 184 /CUMM (130-400); RBC DISTRIBUTION WIDTH 14.2 % (11.5-14.5); RED BLOOD CELL CT 3.97 /CUMM (4.70-6.10)
[2017-12-23] MEDS ORDERED: ONE DAILY MULT1 EAC2 PO (12:34)
[2017-12-23] MEDS ORDERED: VITAMIN B-1100 MG PO (12:34)
[2017-12-23 12:45] LABS: GRANULOCYTE % 86.3 % (42.2-75.2)
[2017-12-23] MEDS ORDERED: COZAAR100 M1 PO (13:07)
[2017-12-23] MEDS ORDERED: AMLODIPINE BESYL5 M1 PO (13:07)
[2017-12-23] MEDS ORDERED: ATIVAN1 M1 PO (13:07)
[2017-12-23] MEDS ORDERED: PANTOPRAZOLE SO40 M2 IV (13:31)
== END 2017-12-23 18:55 | disposition short-term general hospital (02) | DRG 439 ==
LOC: ERH 16:40 → ERHI 20:11 → 2NB 20:11 → ENRESERV 21:31 → 2NB 12-21 01:20 → ENPENDDIS 12-23 13:55 → 2NB 12-23 18:55
PROVIDERS: Internal Medicine Interventional Cardiology; Physician Assistant Medical; Student in an Organized Health Care Education/Training Program
DX: K85.20 Alcohol induced acute pancreatitis without necrosis or infection (principal); E87.1 Hypo-osmolality and hyponatremia; J44.9 Chronic obstructive pulmonary disease, unspecified; K70.10 Alcoholic hepatitis without ascites; F10.239 Alcohol dependence with withdrawal, unspecified; F10.229 Alcohol dependence with intoxication, unspecified; R19.09 Other intra-abdominal and pelvic swelling, mass and lump; K86.0 Alcohol-induced chronic pancreatitis; I10 Essential (primary) hypertension; R74.0 Nonspecific elevation of levels of transaminase and lactic acid dehydrogenase [LDH]; Y90.0 Blood alcohol level of less than 20 mg/100 ml; M19.90 Unspecified osteoarthritis, unspecified site; Z98.1 Arthrodesis status; F19.10 Other psychoactive substance abuse, uncomplicated; E87.6 Hypokalemia; N48.6 Induration penis plastica; Z87.891 Personal history of nicotine dependence
CPT/HCPCS: 2NBSP; 75661; 84133; 84300; ERO; 36415; 71045; 74177; 74183; 80307; 81001; 82436; 82570; 87040; 87389; 93005; 93010; 96374; 96375; A9579; G0480; J1650; J1885; J3490; J7120